=== PATIENT | female | born 1935 | race Two or more races ===

== ENCOUNTER 2019-01-23 16:09 | Emergency (ER) | payer MEDICARE, OTHER ==
[~2019-01-23] VITALS: Ht 157.5 cm; Wt 44.0 kg
--- NOTE | 2019-01-23 16:19 | Emergency Room Report ---
History of Present Illness General Chief Complaint: Upper Respiratory Illness Source: Patient, EMS Present Illness HPI Patient is an 83-year-old female sent in by skilled nursing for possible pneumonia. Patient was noted to have increased cough and congestion.Patient was noted to have no fever. She had some prior history of hypertension. She reports having increased nonproductive cough she denies any new leg swelling. She reports having some increased nasal congestion. Allergies: Coded Allergies: No Known Allergies (Unverified , 01/23/19) Patient History Past Medical History: see triage record Reviewed Nursing Documentation: PMH: Agreed; PSxH: Agreed Nursing Documentation-PMH Past Medical History: No History, Except For Hx Hypertension: Yes Review of Systems All Other Systems: negative except mentioned in HPI Physical Exam Vital Signs Date Time Temp Pulse Resp B/P (MAP) Pulse Ox O2 Delivery O2 Flow Rate FiO2 01/23/19 16:13 98.8 57 16 147/68 96 Room Air Sp02 EP Interpretation: reviewed, normal General Appearance: thin, Chronically Ill Head: atraumatic ENT: normal ENT inspection, hearing grossly normal, normal voice Neck: normal inspection, full range of motion, supple, no bony tend Respiratory: normal inspection, lungs clear, normal breath sounds, no respiratory distress, no retraction, no wheezing Cardiovascular #1: regular rate, rhythm, no edema Gastrointestinal: normal inspection, normal bowel sounds, non tender, soft, no guarding, no hernia Genitourinary: no CVA tenderness Musculoskeletal: normal inspection, back normal, normal range of motion Neurologic: normal inspection, alert, oriented x3, responsive, coke loader III-XII nml as tested, speech normal Psychiatric: normal inspection, judgement/insight normal, mood/affect normal Skin: normal inspection, normal color, no rash Medical Decision Making Diagnostic Impression: Primary Impression: Upper respiratory infection Additional Impression: CHF (congestive heart failure) ER Course Patient presented for cough and difficulty breathing. Differential diagnosis include was not limited to influenza, pneumonitis, congestive heart failure, myocardial infarction among others. Because of complexity of patient's case laboratory testing and imaging studies were ordered. Chest x-ray 1 view interpreted by me showed mild cardiomegaly without evident infiltrate patient was noted to have a normal oxygen saturation. Dr. Perez was contacted and after discussion with him patient will be discharged back to her facility for monitoring. Patient was given oral Lasix in the emergency department. Labs Test 01/23/19 16:32 01/23/19 16:54 White Blood Count 4.0 K/UL (4.8-10.8) Red Blood Count 3.81 M/UL (4.20-5.40) Hemoglobin 11.6 G/DL (12.0-16.0) Hematocrit 35.1 % (37.0-47.0) Mean Corpuscular Volume 92 FL (80-99) Mean Corpuscular Hemoglobin 30.5 PG (27.0-31.0) Mean Corpuscular Hemoglobin Concent 33.1 G/DL (32.0-36.0) Red Cell Distribution Width 12.4 % (11.6-14.8) Platelet Count 219 K/UL (150-450) Mean Platelet Volume 7.2 FL (6.5-10.1) Neutrophils (%) (Auto) 41.6 % (45.0-75.0) Lymphocytes (%) (Auto) 39.2 % (20.0-45.0) Monocytes (%) (Auto) 17.4 % (1.0-10.0) Eosinophils (%) (Auto) 0.6 % (0.0-3.0) Basophils (%) (Auto) 1.3 % (0.0-2.0) Sodium Level 137 MMOL/L (136-145) Potassium Level 4.1 MMOL/L (3.5-5.1) Chloride Level 101 MMOL/L (98-107) Carbon Dioxide Level 30 MMOL/L (21-32) Anion Gap 6 mmol/L (5-15) Blood Urea Nitrogen 21 mg/dL (7-18) Creatinine 0.8 MG/DL (0.55-1.30) Estimat Glomerular Filtration Rate mL/min (>60) Glucose Level 96 MG/DL (74-106) Calcium Level 8.9 MG/DL (8.5-10.1) Total Bilirubin 0.3 MG/DL (0.2-1.0) Aspartate Amino Transf (AST/SGOT) 27 U/L (15-37) Alanine Aminotransferase (ALT/SGPT) 17 U/L (12-78) Alkaline Phosphatase 112 U/L (46-116) Pro-B-Type Natriuretic Peptide 386 pg/mL (0-125) Total Protein 7.4 G/DL (6.4-8.2) Albumin 3.3 G/DL (3.4-5.0) Globulin 4.1 g/dL Albumin/Globulin Ratio 0.8 (1.0-2.7) Urine Color Pale yellow Urine Appearance Clear Urine pH 6.5 (4.5-8.0) Urine Specific [place] 1.010 (1.005-1.035) Urine Protein Negative (NEGATIVE) Urine Glucose (UA) Negative (NEGATIVE) Urine Ketones Negative (NEGATIVE) Urine Blood 4+ (NEGATIVE) Urine Nitrite Negative (NEGATIVE) Urine Bilirubin Negative (NEGATIVE) Urine Urobilinogen Normal MG/DL (0.0-1.0) Urine Leukocyte Esterase Negative (NEGATIVE) Urine RBC 2-4 /HPF (0 - 2) Urine WBC 0-2 /HPF (0 - 2) Urine Squamous Epithelial Cells Occasional /LPF Urine Bacteria Few /HPF (NONE) Last Vital Signs Date Time Temp Pulse Resp B/P (MAP) Pulse Ox O2 Delivery O2 Flow Rate FiO2 01/23/19 16:13 98.8 57 16 147/68 96 Room Air Status: improved Disposition: HOME, SELF-CARE Condition: Stable Hiro Yu MD Jan 23, 2019 16:19
[2019-01-23 16:55] LABS: BASOPHILS % (AUTO) 1.3 % (0.0-2.0); EOSINOPHILS % (AUTO) 0.6 % (0.0-3.0); HEMATOCRIT 35.1 % (37.0-47.0); HEMOGLOBIN 11.6 G/DL (12.0-16.0); LYMPHOCYTES % (AUTO) 39.2 % (20.0-45.0); MEAN CORPUSCULAR VOLUME 92 FL (80-99); MONOCYTES % (AUTO) 17.4 % (1.0-10.0); NEUTROPHILS % (AUTO) 41.6 % (45.0-75.0); PLATELET COUNT 219 K/UL (150-450); RED BLOOD COUNT 3.81 M/UL (4.20-5.40); RED CELL DISTRIBUTION WIDTH 12.4 % (11.6-14.8)
[2019-01-23 17:02] VITALS: BP 140/51
--- NOTE | 2019-01-23 17:05 | NUR ---
ED Nurse Note: PT. AAOX4. FRISIAN SPEAKING. PT. WAS BROUGHT IN BY AMBULANCE DUE TO PRODUCTIVE COUGH REORTED BY THE DAUGHTER. WAS RECENTLY SEEN BY PCP AND WAS TOLD TO GO TO ER FOR POSSIBLE PNEUMONIA. KE IS INTACT. ESTABLISHED 18 GAUGE IV ACCESS ON L AC. DAUGHTER AT THE BEDSIDE
[2019-01-23 17:29] LABS: ANION GAP 6 mmol/L (5-15); BLOOD UREA NITROGEN 21 mg/dL (7-18); CALCIUM 8.9 MG/DL (8.5-10.1); CARBON DIOXIDE 30 MMOL/L (21-32); CHLORIDE 101 MMOL/L (98-107); CREATININE 0.8 MG/DL (0.55-1.30); POTASSIUM 4.1 MMOL/L (3.5-5.1); SODIUM 137 MMOL/L (136-145)
[2019-01-23 17:36] LABS: APPEARANCE,URINE CLEAR; BILIRUBIN, URINE NEGATIVE (NEGATIVE); COLOR,URINE PALE YELLOW; GLUCOSE, URINE (UA) NEGATIVE (NEGATIVE); KETONES,URINE NEGATIVE (NEGATIVE); LEUKOCYTE ESTERASE ,URINE NEGATIVE (NEGATIVE); NITRITE,URINE NEGATIVE (NEGATIVE); PH,URINE 6.5 (4.5-8.0); PROTEIN,URINE NEGATIVE (NEGATIVE); UROBILINOGEN,URINE NORMAL MG/DL (0.0-1.0)
[2019-01-23 17:40] LABS: ALANINE AMINOTRANSFERASE 17 U/L (12-78); ALBUMIN 3.3 G/DL (3.4-5.0); ALBUMIN/GLOBULIN RATIO 0.8 (1.0-2.7); ALKALINE PHOSPHATASE 112 U/L (46-116); ASPARTATE AMINO TRANSFERASE 27 U/L (15-37); BILIRUBIN,TOTAL 0.3 MG/DL (0.2-1.0)
--- NOTE | 2019-01-23 18:48 | NUR ---
Spoke with PENNY at [facility]-aware of patient going back.
--- NOTE | 2019-01-23 18:51 | NUR ---
Spoke with Olena at [facility]-ETA 20:00.
--- NOTE | 2019-01-23 19:05 | NUR ---
ED Nurse Note: KENDRA FRANCIS-RECEIVED THE REPORT
--- NOTE | 2019-01-23 20:07 | NUR ---
ED Nurse Note: Report rendered to BLS, patient in stable condition, no s/s of acute distress. Patient vital signs stable, patient accompanied by daughter at bedside, departed with all belongings.
[2019-01-23 20:09] VITALS: BP 140/51
--- NOTE | 2019-01-24 11:57 | Diagnostic Imaging Report ---
Indication: Shortness of breath Technique: One view of the chest Comparison: none Findings: Patient is rotated to the right. Lungs and right pleural space are clear. There is approximately 3 cm diameter lentiform opacity occupying the left costophrenic sulcus. The heart size is upper limits of normal Impression: Opacity within the left costophrenic sulcus. Possibly of mass should be considered. Recommend further evaluation with CT scan No definite acute process Findings discussed by phone with Dr. Manjarrez in the emergency room at the time of interpretation
[2019-01-24] MEDS ORDERED: MILK OF MA400 MG/51 ORAL (16:08)
[2019-01-24] MEDS ORDERED: DOCUSIL100 M1 ORAL (16:08)
[2019-01-24] MEDS ORDERED: ENALAPRIL MALEA10 MG ORAL (16:08)
[2019-01-24] MEDS ORDERED: CHLORTHALIDONE25 MG ORAL (16:08)
[2019-01-24] MEDS ORDERED: FAMOTIDINE20 MG ORAL (16:08)
[2019-01-24] MEDS ORDERED: LAXATIVE SUPPOS10 MG RC (16:08)
[2019-01-24] MEDS ORDERED: NORCO 5-325 TA1 EACH ORAL ×2 (16:08→17:44)
[2019-01-24] MEDS ORDERED: ACETAMINOPHEN325 M1 ORAL (16:08)
[2019-01-24] MEDS ORDERED: METOPROLOL TART25 MG ORAL (16:08)
[2019-01-24] MEDS ORDERED: METOPROLOL SUCC25 MG ORAL (17:44)
[2019-01-24] MEDS ORDERED: FLEET ENEMA133 ML RECTAL (17:44)
--- NOTE | 2019-01-26 01:28 | Cardiology Report ---
APPROVED REPORT EKG Measurement Heart [id number] TN [id number] Sinus bradycardia Otherwise normal ECG
== END 2019-01-23 20:05 ==
LOC: EDBD 16:09 → EMR 16:45
DX: J06.9 Acute upper respiratory infection, unspecified (principal); I11.0 Hypertensive heart disease with heart failure; I50.9 Heart failure, unspecified
CPT/HCPCS: 36415; 71045; 80053; 81003; 83880; 85025; 86710; 87040; 93005; 96374; 99284; J1940

== ENCOUNTER 2019-01-24 15:52 | Inpatient (IN) | payer MEDICARE, OTHER ==
[~2019-01-24] VITALS: Ht 152.4 cm; Wt 44.3 kg
[2019-01-24] MEDS ORDERED: NORCO 5-325 TA1 EACH ORAL ×2 (16:08→17:44)
[2019-01-24] MEDS ORDERED: ENALAPRIL MALEA10 MG ORAL (16:08)
[2019-01-24] MEDS ORDERED: CHLORTHALIDONE25 MG ORAL (16:08)
[2019-01-24] MEDS ORDERED: FAMOTIDINE20 MG ORAL (16:08)
[2019-01-24] MEDS ORDERED: DOCUSIL100 M1 ORAL (16:08)
[2019-01-24] MEDS ORDERED: LAXATIVE SUPPOS10 MG RC (16:08)
[2019-01-24] MEDS ORDERED: METOPROLOL TART25 MG ORAL (16:08)
[2019-01-24] MEDS ORDERED: ACETAMINOPHEN325 M1 ORAL (16:08)
[2019-01-24] MEDS ORDERED: MILK OF MA400 MG/51 ORAL (16:08)
[2019-01-24 16:15] VITALS: BP 113/62
--- NOTE | 2019-01-24 16:30 | NUR ---
ED Nurse Note: Pt brought in by ambulance BLS from [facility] due to abnormal cxr. Pt was here yesterday and was discharged w. dx pneumonia. pt reports chest pain 06/01. pt AA&ox1, belarusian speaking, calm and cooperative, skin warm and dry, resp even and unlabored on RA, -n/v/d, on bedrest at this time, VSS, will cont monitor. no resp distress, o2sat 98% on RA.
--- NOTE | 2019-01-24 17:02 | Diagnostic Imaging Report ---
Indication: Shortness of breath Technique: One view of the chest Comparison: 01/23/2019 Findings: Opacity in the left costophrenic sulcus is again demonstrated. The remainder of the lungs and pleural spaces are clear. The heart size is borderline enlarged. The aorta is tortuous. Impression: Left costophrenic sulcus opacity, previously described on previous day's exam, again demonstrated. As previously recommended, consider CT for better characterization No significant interim change
[2019-01-24 17:14] LABS: BASOPHILS % (AUTO) 1.1 % (0.0-2.0); EOSINOPHILS % (AUTO) 2.2 % (0.0-3.0); HEMATOCRIT 38.1 % (37.0-47.0); HEMOGLOBIN 12.5 G/DL (12.0-16.0); LYMPHOCYTES % (AUTO) 37.3 % (20.0-45.0); MEAN CORPUSCULAR VOLUME 92 FL (80-99); MONOCYTES % (AUTO) 14.9 % (1.0-10.0); NEUTROPHILS % (AUTO) 44.5 % (45.0-75.0); PLATELET COUNT 231 K/UL (150-450); RED BLOOD COUNT 4.12 M/UL (4.20-5.40); RED CELL DISTRIBUTION WIDTH 12.5 % (11.6-14.8)
[2019-01-24 17:18] LABS: INR 0.9 (0.9-1.1)
[2019-01-24 17:21] LABS: ANION GAP 8 mmol/L (5-15); BLOOD UREA NITROGEN 19 mg/dL (7-18); CARBON DIOXIDE 31 MMOL/L (21-32); CHLORIDE 100 MMOL/L (98-107); CREATININE 0.9 MG/DL (0.55-1.30); POTASSIUM 3.4 MMOL/L (3.5-5.1); SODIUM 139 MMOL/L (136-145)
[2019-01-24 17:32] LABS: ALANINE AMINOTRANSFERASE 18 U/L (12-78); ALBUMIN 3.4 G/DL (3.4-5.0); ALBUMIN/GLOBULIN RATIO 0.8 (1.0-2.7); ALKALINE PHOSPHATASE 130 U/L (46-116); ASPARTATE AMINO TRANSFERASE 27 U/L (15-37); BILIRUBIN,TOTAL 0.2 MG/DL (0.2-1.0); CREATINE KINASE 54 U/L (26-308)
[2019-01-24] MEDS ORDERED: FLEET ENEMA133 ML RECTAL (17:44)
[2019-01-24] MEDS ORDERED: METOPROLOL SUCC25 MG ORAL (17:44)
[2019-01-24 18:10] VITALS: BP 118/46
[2019-01-24] MEDS ORDERED: Isovue-300 100ml vial INJ PRN (18:30)
--- NOTE | 2019-01-24 18:33 | NUR ---
ED Nurse Note: Urine sent.
[2019-01-24 18:39] LABS: APPEARANCE,URINE CLEAR; BILIRUBIN, URINE NEGATIVE (NEGATIVE); COLOR,URINE PALE YELLOW; GLUCOSE, URINE (UA) NEGATIVE (NEGATIVE); KETONES,URINE NEGATIVE (NEGATIVE); LEUKOCYTE ESTERASE ,URINE 1+ (NEGATIVE); NITRITE,URINE NEGATIVE (NEGATIVE); PH,URINE 7 (4.5-8.0); PROTEIN,URINE 1+ (NEGATIVE); UROBILINOGEN,URINE NORMAL MG/DL (0.0-1.0)
--- NOTE | 2019-01-24 18:45 | NUR ---
Marcellus hernandez in EDM - 01/24/19 at 1848 by SHIRA ED Nurse Note: Pharmacist called and stated that Lovenox will take some time to mix the dose.
--- NOTE | 2019-01-24 19:39 | NUR ---
ED Nurse Note: REPORT GIVEN TO RN TALI, WILL SEND PT AT 2000
--- NOTE | 2019-01-24 19:48 | NUR ---
ED Nurse Note: VERIFIED W/ ERMD, PT OKAY TO EAT/DRINK. SANDWICH AND JUICE PROVIDED
--- NOTE | 2019-01-24 19:51 | NUR ---
CASE MANAGEMENT: REVIEW 83/F BIBA FROM [facility] CC: ABNORMAL LABS SI: PNA T 99.7 HR 63 RR 20 BP 118/46 SAT 96% ROOM AIR WBC 4.0 K 3.4 BNP 363 CXR: LEFT COSTOPHRENIC SULCUS OPACITY IS: NS IVF BOLUS X1 PATIENT ADMITTED TO MED/SURG UNIT 01/24/2019 DCP: PATIENT IS FROM [facility]
--- NOTE | 2019-01-24 20:00 | NUR ---
ED Nurse Note: report given to LISA Christopher and endorsed care, all belongings sent w/ pt. pt transferred to [facility]. w[facility]. daughter at the bedside.
--- NOTE | 2019-01-24 20:21 | Emergency Room Report ---
History of Present Illness General Chief Complaint: Abnormal Labs Source: Patient, Family Member, Medical Record, EMS Present Illness HPI Patient was seen yesterday for an episode of paroxysms of coughing. This really began Thursday night. This is unusual as the patient doesn't complain about chest symptoms. An x-ray was performed. In the morning was reread by the radiologist who found a mass there on the left-hand side and the patient was told to return. The patient denies any symptoms at this time. No fevers, chills, chest pain, palpitations, nausea, vomiting, diarrhea, dysuria , abdominal pain, shortness of breath, depression, visual changes, headache. However the patient does have dementia and her answers are questionable This is yesterday's history: Patient is an 83-year-old female sent in by [facility] for possible pneumonia. Patient was noted to have increased cough and congestion.Patient was noted to have no fever. She had some prior history of hypertension. She reports having increased nonproductive cough she denies any new leg swelling. She reports having some increased nasal congestion. Allergies: Coded Allergies: No Known Allergies (Unverified , 01/23/19) Patient History Past Medical History: see triage record Social History: Denies: smoking Social History Narrative Born in the [facility] Reviewed Nursing Documentation: PMH: Agreed; PSxH: Agreed Nursing Documentation-PMH Hx Cardiac Problems: Yes - chf Hx Hypertension: Yes Review of Systems All Other Systems: negative except mentioned in HPI - Somewhat questionable answers Physical Exam Vital Signs Date Time Temp Pulse Resp B/P (MAP) Pulse Ox O2 Delivery O2 Flow Rate FiO2 01/24/19 15:53 99.7 73 20 119/62 96 Room Air Sp02 EP Interpretation: reviewed, normal General Appearance: no apparent distress, thin, other - Frail Head: normocephalic Eyes: bilateral eye normal inspection, bilateral eye PERRL ENT: moist mucus membranes Neck: supple Respiratory: chest non-tender, lungs clear, normal breath sounds Cardiovascular #1: regular rate, rhythm Cardiovascular #2: 2+ radial (R) Gastrointestinal: normal inspection, normal bowel sounds, non tender, no mass, non-distended Genitourinary: no CVA tenderness Musculoskeletal: back normal, normal range of motion, no calf tenderness, Karley 's Sign negative Neurologic: alert, oriented - X2 Psychiatric: mood/affect normal, other - Poor recent memory Skin: normal inspection, warm/dry Medical Decision Making Diagnostic Impression: Primary Impression: Lung mass Additional Impression: Dehydration ER Course Patient presents with abnormal x-ray. Differential includes pneumonia, mass amongst others. Repeat laboratory testing is undertaken as well as repeat chest x-ray. Patient is placed on compliance monitor. EKG without injury or abnormality. Chest x-ray with left mass versus infiltrate. Labs unremarkable except for mild elevation in BUN and slightly low potassium. White count is 4000. CT of the chest is obtained with contrast. This reveals a 3.5 cm mass with pleural nodules. At the request of the daughter and her physician the patient is admitted to medical floor for consideration of lung biopsy. Laboratory Tests Test 01/24/19 16:25 01/24/19 18:26 White Blood Count 4.0 K/UL (4.8-10.8) L Red Blood Count 4.12 M/UL (4.20-5.40) L Hemoglobin 12.5 G/DL (12.0-16.0) Hematocrit 38.1 % (37.0-47.0) Mean Corpuscular Volume 92 FL (80-99) Mean Corpuscular Hemoglobin 30.4 PG (27.0-31.0) Mean Corpuscular Hemoglobin Concent 32.9 G/DL (32.0-36.0) Red Cell Distribution Width 12.5 % (11.6-14.8) Platelet Count 231 K/UL (150-450) Mean Platelet Volume 7.6 FL (6.5-10.1) Neutrophils (%) (Auto) 44.5 % (45.0-75.0) L Lymphocytes (%) (Auto) 37.3 % (20.0-45.0) Monocytes (%) (Auto) 14.9 % (1.0-10.0) H Eosinophils (%) (Auto) 2.2 % (0.0-3.0) Basophils (%) (Auto) 1.1 % (0.0-2.0) Prothrombin Time 10.0 SEC (9.30-11.50) Prothrombin Time INR 0.9 (0.9-1.1) PTT 27 SEC (23-33) Sodium Level 139 MMOL/L (136-145) Potassium Level 3.4 MMOL/L (3.5-5.1) L Chloride Level 100 MMOL/L (98-107) Carbon Dioxide Level 31 MMOL/L (21-32) Anion Gap 8 mmol/L (5-15) Blood Urea Nitrogen 19 mg/dL (7-18) H Creatinine 0.9 MG/DL (0.55-1.30) Estimate Glomerular Filtration Rate mL/min (>60) Glucose Level 110 MG/DL (74-106) H Lactic Acid Level 1.90 mmol/L (0.4-2.0) Calcium Level 9.0 MG/DL (8.5-10.1) Total Bilirubin 0.2 MG/DL (0.2-1.0) Aspartate Amino Transferase (AST) 27 U/L (15-37) Alanine Aminotransferase (ALT) 18 U/L (12-78) Alkaline Phosphatase 130 U/L (46-116) H Total Creatine Kinase 54 U/L (26-308) Troponin I 0.000 ng/mL (0.000-0.056) Pro-B-Type Natriuretic Peptide 363 pg/mL (0-125) H Total Protein 7.8 G/DL (6.4-8.2) Albumin 3.4 G/DL (3.4-5.0) Globulin 4.4 g/dL Albumin/Globulin Ratio 0.8 (1.0-2.7) L Urine Color Pale yellow Urine Appearance Clear Urine pH 7 (4.5-8.0) Urine Specific [place] 1.010 (1.005-1.035) Urine Protein 1+ (NEGATIVE) H Urine Glucose (UA) Negative (NEGATIVE) Urine Ketones Negative (NEGATIVE) Urine Blood 3+ (NEGATIVE) H Urine Nitrite Negative (NEGATIVE) Urine Bilirubin Negative (NEGATIVE) Urine Urobilinogen Normal MG/DL (0.0-1.0) Urine Leukocyte Esterase 1+ (NEGATIVE) H Urine RBC 5-10 /HPF (0 - 2) H Urine WBC 2-4 /HPF (0 - 2) Urine Squamous Epithelial Cells Few /LPF (NONE/OCC) Urine Bacteria Few /HPF (NONE) Microbiology Date/Time Source Procedure Growth Status 01/24/19 16:25 Nasal Nares Influenza Types A,B Antigen ([facility]) - Final Complete EKG Diagnostic Results Rate: normal Rhythm: NSR ST Segments: no acute changes Rhythm Strip Diag. Results EP Interpretation: yes Rhythm: NSR, no PVC's, no ectopy Chest X-Ray Diagnostic Results Chest X-Ray Diagnostic Results : Chest X-Ray Ordered: Yes # of Views/Limited/Complete: 1 View Indication: Other EP Interpretation: Yes Interpretation: no effusion, no pneumothorax, other - Left lung mass Impression: Other Electronically Signed by: Electronically signed by Kelvin Graham MD CT/MRI/US Diagnostic Results CT/MRI/US Diagnostic Results : Imaging Test Ordered: Chest Impression 3.5 cm lung mass. Pleural nodules. Biopsy recommended. Last Vital Signs Date Time Temp Pulse Resp B/P (MAP) Pulse Ox O2 Delivery O2 Flow Rate FiO2 01/24/19 23:26 Room Air 01/24/19 20:44 98.8 68 19 120/59 (79) 99 Status: improved Disposition: ADMITTED INPATIENT Condition: Serious Referrals: Lawrence Perez MD (PCP) Kelvin Graham MD Jan 24, 2019 20:21
[2019-01-24 20:44] VITALS: BP 120/59
--- NOTE | 2019-01-24 20:44 | NUR ---
NURSE NOTES: Patient received from Florencia Brumfield FROM ed Patient coming from [facility] Moroccan speaking due to abnormal CXR . Patient vss, afebrile . Patient denies any pain at this time . no sob / no n/v noted call lihnt within reach . bed in low position at all times . will continue to monitor. Addendum: 01/25/19 at 0248 by TALI LÓPEZ LVN Patient received from Luciana Mares R.N From ED. RAC Manpreet#20 H/L Patent and intact. patient family at bedside.Personal belongings signed and with patient . Notified patient location [address] 2 . call light within reach . bed in low position at all times . will continue to monitor Addendum: 01/25/19 at 0551 by TALI LÓPEZ LVN Patient potassium 3.4 DR. Perez Notified and aware .
[2019-01-24] MEDS ORDERED: Fleet's Enema 133ml RECTAL PRN (23:00)
[2019-01-24] MEDS ORDERED: Norco 5mg/325mg tab ORAL PRN ×2 (23:00)
[2019-01-24] MEDS ORDERED: Milk of Magnesia 30ml Ud ORAL PRN (23:00)
[2019-01-25] VITALS (9 sets, daily range): BP systolic 102–157; BP diastolic 39–73
--- NOTE | 2019-01-25 07:15 | NUR ---
HAND-OFF: Report given to Oscar BrumfieldPatient in stable condition
[2019-01-25 07:52] LABS: HEMATOCRIT 35.1 % (37.0-47.0); HEMOGLOBIN 11.5 G/DL (12.0-16.0); MEAN CORPUSCULAR VOLUME 92 FL (80-99); PLATELET COUNT 219 K/UL (150-450); RED BLOOD COUNT 3.82 M/UL (4.20-5.40); RED CELL DISTRIBUTION WIDTH 12.6 % (11.6-14.8)
[2019-01-25 07:59] LABS: WHITE BLOOD COUNT 2.1 K/UL (4.8-10.8)
--- NOTE | 2019-01-25 08:00 | NUR ---
NURSE NOTES: Received report from Candi GARDNER, pt a/a/o x4 with no signs of distress or other issues at this time. pt is able to ambulate around the room with steady gait. pt is NPO for schedule chest CT scan. then will resume regular diet. call light within reach, bed in lowest position, side rales up x2. pt's daughter at bedside. I will f/u as needed.
[2019-01-25 08:21] LABS: ALANINE AMINOTRANSFERASE 16 U/L (12-78); ALBUMIN/GLOBULIN RATIO 0.8 (1.0-2.7); ALKALINE PHOSPHATASE 104 U/L (46-116); ANION GAP 9 mmol/L (5-15); ASPARTATE AMINO TRANSFERASE 26 U/L (15-37); BILIRUBIN,TOTAL 0.2 MG/DL (0.2-1.0); BLOOD UREA NITROGEN 17 mg/dL (7-18); CALCIUM 8.6 MG/DL (8.5-10.1); CARBON DIOXIDE 28 MMOL/L (21-32); CHLORIDE 103 MMOL/L (98-107); CHOLESTEROL 151 MG/DL (< 200); CREATININE 0.7 MG/DL (0.55-1.30); HDL CHOLESTEROL 52 MG/DL (40-60); POTASSIUM 3.4 MMOL/L (3.5-5.1); SODIUM 140 MMOL/L (136-145); TRIGLYCERIDES 90 MG/DL (30-150)
[2019-01-25] MEDS: Metoprolol Succinate XL 25mg tab ORAL SCH (09:29)
[2019-01-25] MEDS: Enoxaparin 40mg Inj SUBQ SCH (09:30)
[2019-01-25] MEDS: Docusate 100mg cap ORAL SCH ×2 (09:31→18:13)
--- NOTE | 2019-01-25 10:25 | Diagnostic Imaging Report ---
Clinical Indication: Chest pain, abnormal chest radiograph Technique: IV administration nonionic contrast. Spiral acquisition obtained through the chest. Multiplanar reconstructions generated. Total dose length product 576.68 mGycm. CTDIvol(s) 11.9 mGy. Dose reduction achieved using automated exposure control Comparison: Reference made to chest radiograph of earlier the same day Findings: There is some image degradation due to motion artifact. In the left lateral costophrenic sulcus, corresponding to the abnormality seen on chest radiograph, there is a pleural-based mass which measures 3.7 cm AP by 1.8 cm transverse by 3 cm craniocaudad. This demonstrates nonspecific soft tissue attenuation. The adjacent ribs are intact A 7 mm nodule is seen within the lingula, image 35 of series 8. A 3 mm lingular nodule is also demonstrated, image 41 of series 8 Opacity in the inferior right middle lobe is irregular, probably represents an area of scarring. Similar opacity is seen in the anterior inferior left lower lobe. There is mild pulmonary venous prominence. There are posterior dependent atelectatic changes. No infiltrates or effusions. The heart size is upper limits of normal. No mediastinal or hilar mass or adenopathy. The ascending thoracic aorta is mildly ectatic, measuring 3.7 cm in diameter. No mediastinal or hilar mass or adenopathy. The included portion of the thyroid is unremarkable. No axillary or chest wall mass or adenopathy. The bones are unremarkable except for degenerative spondylosis changes. The included upper abdominal viscera are unremarkable. Impression: 3.7 x 1.8 x 3 cm mass in the left costophrenic sulcus, likely pleural-based. This is concerning for neoplasm. 7 mm and 3 mm lingular nodules. Further workup depends on evaluation of the above, but short interval follow-up CT should be considered Mild interstitial vascular prominence, could indicate mild interstitial edema This agrees with the preliminary interpretation provided overnight by [facility]. The CT scanner at [facility] is accredited by the [employer] and the scans are performed using protocols designed to limit radiation exposure to as low as reasonably achievable to attain images of sufficient resolution adequate for diagnostic evaluation.
--- NOTE | 2019-01-25 11:06 | NUR ---
NURSE NOTES: CT of Chest completed this morning. Meal provided after procedure. Patient Nicaraguan Speaking, but family members at bedside bilingual.
[2019-01-25] MEDS ORDERED: Lidocaine 1% Plain 30 ml INJ PRN ×2 (12:15→13:30)
--- NOTE | 2019-01-25 13:26 | Cardiology Report ---
APPROVED REPORT EKG Measurement Heart [id number] Normal sinus rhythm Normal ECG
--- NOTE | 2019-01-25 13:49 | Pre-Procedure Note/Attestation ---
Pre-Procedure Note/Attestation Complete Prior to Procedure Planned Procedure: left Procedure Narrative: CT guided lung/pleura bx Indications for Procedure Pre-Operative Diagnosis: Mass Attestation I attest that I discussed the nature of the procedure; its benefits; risks and complications; and alternatives (and the risks and benefits of such alternatives ), prior to the procedure, with the patient (or the patient's legal senior patient account representative). I attest that, if there was a reasonable possibility of needing a blood transfusion, the patient (or the patient's legal senior patient account representative) was given the [facility] standardized written summary, pursuant to the Butch Jones Blood Safety Act ([place] Health and Safety Code # 1645, as amended). I attest that I re-evaluated the patient just prior to the surgery and that there has been no change in the patient's H&P, except as documented below: Yahir Durand MD Jan 25, 2019 13:49
--- NOTE | 2019-01-25 14:04 | History & Physical ---
History and Physical History & Physicial HP completed and Dictated on 01/25/19 on 0204 PM Lawrence Perez MD Jan 25, 2019 14:04
--- NOTE | 2019-01-25 14:06 | General Progress Note ---
Assessment/Plan Assessment/Plan Full Dictation in progress Plan: Proceed with CT guided lung Bx Oncology Pulmonary Are consulted Subjective Allergies: Coded Allergies: No Known Allergies (Unverified , 01/23/19) Objective Last 24 Hour Vital Signs Date Time Temp Pulse Resp B/P (MAP) Pulse Ox O2 Delivery O2 Flow Rate FiO2 01/25/19 14:00 59 18 156/64 (94) 100 01/25/19 13:50 62 18 01/25/19 09:31 124/64 01/25/19 09:29 61 124/64 01/25/19 08:00 98.7 61 18 124/64 (84) 98 01/25/19 04:00 98.6 69 17 122/66 (84) 99 01/25/19 00:00 98.6 64 18 116/56 (76) 98 01/24/19 23:26 Room Air 01/24/19 20:44 98.8 68 19 120/59 (79) 99 01/24/19 20:00 97.6 67 18 134/59 98 Room Air 01/24/19 18:10 98.7 63 16 118/46 98 Room Air 01/24/19 16:30 78 16 Room Air 01/24/19 16:15 99.7 70 18 113/62 96 Room Air 01/24/19 15:53 99.7 73 20 119/62 96 Room Air Intake and Output 01/24/19 01/25/19 18:59 06:59 Intake Total 10 ml 320 ml Balance 10 ml 320 ml Intake Oral 10 ml 320 ml # Voids 3 Laboratory Tests 01/24/19 16:25: White Blood Count 4.0L, Red Blood Count 4.12L, Hemoglobin 12.5, Hematocrit 38.1 , Mean Corpuscular Volume 92, Mean Corpuscular Hemoglobin 30.4, Mean Corpuscular Hemoglobin Concent 32.9, Red Cell Distribution Width 12.5, Platelet Count 231, Mean Platelet Volume 7.6, Neutrophils (%) (Auto) 44.5L, Lymphocytes ( %) (Auto) 37.3, Monocytes (%) (Auto) 14.9H, Eosinophils (%) (Auto) 2.2, Basophils (%) (Auto) 1.1, Prothrombin Time 10.0, Prothromb Time International Ratio 0.9, Activated Partial Thromboplast Time 27, Sodium Level 139, Potassium Level 3.4L, Chloride Level 100, Carbon Dioxide Level 31, Anion Gap 8, Blood Urea Nitrogen 19H, Creatinine 0.9, Estimat Glomerular Filtration Rate , Glucose Level 110H, Lactic Acid Level 1.90, Calcium Level 9.0, Total Bilirubin 0.2, Aspartate Amino Transf (AST/SGOT) 27, Alanine Aminotransferase (ALT/SGPT) 18, Alkaline Phosphatase 130H, Total Creatine Kinase 54, Troponin I 0.000, Pro-B- Type Natriuretic Peptide 363H, Total Protein 7.8, Albumin 3.4, Globulin 4.4, Albumin/Globulin Ratio 0.8L 01/24/19 18:26: Urine Color Pale yellow, Urine Appearance Clear, Urine pH 7, Urine Specific [place] 1.010, Urine Protein 1+H, Urine Glucose (UA) Negative, Urine Ketones Negative, Urine Blood 3+H, Urine Nitrite Negative, Urine Bilirubin Negative, Urine Urobilinogen Normal, Urine Leukocyte Esterase 1+H, Urine RBC 5-10H, Urine WBC 2-4, Urine Squamous Epithelial Cells Few, Urine Bacteria Few 01/25/19 06:20: White Blood Count 2.1*L, Red Blood Count 3.82L, Hemoglobin 11.5L, Hematocrit 35.1L, Mean Corpuscular Volume 92, Mean Corpuscular Hemoglobin 30.2, Mean Corpuscular Hemoglobin Concent 32.8, Red Cell Distribution Width 12.6, Platelet Count 219, Mean Platelet Volume 7.2, Neutrophils (%) (Auto) , Lymphocytes (%) ( Auto) , Monocytes (%) (Auto) , Eosinophils (%) (Auto) , Basophils (%) (Auto) , Sodium Level 140, Potassium Level 3.4L, Chloride Level 103, Carbon Dioxide Level 28, Anion Gap 9, Blood Urea Nitrogen 17, Creatinine 0.7, Estimat Glomerular Filtration Rate , Glucose Level 88, Calcium Level 8.6, Total Bilirubin 0.2, Aspartate Amino Transf (AST/SGOT) 26, Alanine Aminotransferase ( ALT/SGPT) 16, Alkaline Phosphatase 104, Troponin I 0.007, Total Protein 6.8, Albumin 3.0L, Globulin 3.8, Albumin/Globulin Ratio 0.8L, Differential Total Cells Counted 100, Neutrophils % (Manual) 34L, Lymphocytes % (Manual) 47H, Monocytes % (Manual) 16H, Eosinophils % (Manual) 3, Basophils % (Manual) 0, Band Neutrophils 0, Platelet Estimate Adequate, Platelet Morphology Normal, Red Blood Cell Morphology Normal, Hemoglobin A1c 5.6, Triglycerides Level 90, Cholesterol Level 151, LDL Cholesterol 83, HDL Cholesterol 52, Cholesterol/HDL Ratio 2.9L Height (Feet): 5 Height (Inches): 0.00 Weight (Pounds): 110 Lawrence Perez MD Jan 25, 2019 14:06
--- NOTE | 2019-01-25 14:22 | Brief Operative Note ---
Immediate Post Operative Note Operative Note Pre-op Diagnosis: L lung mass on CT scan Procedure: CT guided L lung bx (attempted) Post-op Diagnosis: same as pre-op Surgeon: Vanessa Rush Anesthesia: local Specimen: none Complications: yes - Pt. developed small PTX before samples could be obtained; procedure aborted and will be rescheduled Fluids: none Drains: none Implant(s) used?: No Yahir Rush MD Jan 25, 2019 14:22
--- NOTE | 2019-01-25 16:05 | Diagnostic Imaging Report ---
Indication: Status post lung biopsy Technique: One view of the chest Comparison: 01/24/2019 Findings: No definite pneumothorax is demonstrated. Left costophrenic angle mass is again demonstrated. The remainder the lungs and pleural spaces are clear. Heart size is normal. The aorta is tortuous and calcified Impression: No definite pneumothorax demonstrated, despite evidence of small pneumothorax on intraprocedural imaging Left basilar lung mass again demonstrated
--- NOTE | 2019-01-25 16:15 | Consultation ---
DATE OF CONSULTATION: 01/25/2019 PULMONARY CONSULTATION CONSULTING PHYSICIAN: Hussain Solitario M.D. HISTORY OF PRESENT ILLNESS: This is an 83-year-old female, who came in to the hospital with cough. The patient was seen in the ER and found to have a lung mass on chest x-ray. The patient denies any on my evaluation. REVIEW OF SYSTEMS: Denies any headaches, hematemesis, melena, hematochezia, night sweats, or weight loss. PAST MEDICAL HISTORY: Notable only for cognitive impairment. There is a documented history of CHF. SOCIAL HISTORY: She is originally from [place]. She denies alcohol or tobacco usage. PHYSICAL EXAMINATION: GENERAL: Reveals an elderly female. VITAL SIGNS: Blood pressure is 120/70, heart rate 84, respiratory rate 18, and afebrile. HEENT: Unremarkable. LUNGS: Clear breath sounds bilaterally. HEART: Normal heart sounds. ABDOMEN: Soft. EXTREMITIES: There is no edema. LABORATORY AND DIAGNOSTIC DATA: Lab testing shows white count of 4000. Chemistries are normal except for potassium of 3.4. Coags are negative. Urinalysis negative. Imaging studies, x-ray of chest was obtained which shows left costophrenic sulcus opacity. A CT of chest has been recommended. IMPRESSION: 1. Abnormal chest x-ray. 2. Cough. 3. Cognitive impairment. DISCUSSION: The patient will need further imaging studies. A CT of chest has been ordered. I will await completion of CT of chest and make further recommendations. In the interim, continue present medications and care. We will follow carefully. Hussain Solitario M.D. DR: CLEMENTE JOB#: [id number] CC:
--- NOTE | 2019-01-25 16:53 | Consultation ---
History of Present Illness General Date patient seen: Jan 25, 2019 Time patient seen: 16:36 Chief Complaint: cough , possible pneumonia Referring physician: Govind Moore Reason for Consultation: possible left side pneumonia Present Illness HPI This is an 83-year-old female with past medical history of CHF and hypertension was seen yesterday in the emergency room at [facility] for paroxysmal episodes of coughing which started Thursday night and was unusual for the patient patient was [facility] to be evaluated for possible pneumonia she had a chest x-ray which showed left sulcus groove masslike lesion so she was called back to return to the hospital and she was admitted for further evaluation. Patient had CT scan of the chest showed 3.7 x 1.8 x 3 cm mass in the left costophrenic sulcus likely pleural-based concerning for neoplasm with 7 mm and 3 mm lingular nodule so infectious disease consultation was requested for possible antibiotic treatment. Patient underwent CT-guided biopsy of her lung mass today for further evaluation No fevers, chills, chest pain, palpitations, nausea, vomiting, diarrhea, dysuria , abdominal pain, shortness of breath, depression, visual changes, headache. However the patient has dementia and her answers are questionable Allergies: Coded Allergies: No Known Allergies (Unverified , 01/23/19) Medication History Scheduled Chlorthalidone* (Chlorthalidone*), 25 MG ORAL DAILY, (Reported) Docusate Sodium* (Docusil*), 100 MG ORAL TWICE A DAY, (Reported) Enalapril Maleate* (Enalapril Maleate*), 10 MG ORAL DAILY, (Reported) Famotidine (Famotidine), 20 MG ORAL TWICE A DAY, (Reported) Metoprolol Succinate* (Metoprolol Succinate*), 25 MG ORAL DAILY, (Reported) Scheduled PRN Acetaminophen* (Acetaminophen 325MG Tablet*), 650 MG ORAL Q4H PRN for MILD PAIN (PAIN SCALE 1-4), (Reported) Bisacodyl (Laxative Suppository), 10 MG RC for IF MOM INEFFECTIVE, (Reported) Hydrocodone Bit/Acetaminophen 5-325* ([place] 5-325*), 1 TAB ORAL Q6H PRN for MOD PAIN (PAIN SCALE 5-7), (Reported) Hydrocodone Bit/Acetaminophen 5-325* ([place] 5-325*), 2 TAB ORAL Q6H PRN for SEVERE PAIN (PAIN SCALE 8-10), (Reported) Magnesium Hydroxide* (Milk Of Magnesia*), 30 ML ORAL DAILY PRN for Constipation, (Reported) Na Phos,M-B/Na Phos,Di-Ba* (Fleet Enema*), 133 ML RECTAL DAILY PRN for IF MOM & BISACODYL INEFFECTIVE, (Reported) Discontinued Medications Metoprolol Tartrate* (Metoprolol Tartrate*), 25 MG ORAL EVERY 12 HOURS, ( Reported) Discontinued Reason: Prescription changed Patient History Limited by: age, medical condition History Provided By: Medical Record, EMS Healthcare decision maker Resuscitation status Full Code Advanced Directive on File No Past Medical/Surgical History Past Medical/Surgical History: (1) Dementia (2) CHF (congestive heart failure) (3) HTN (hypertension) Review of Systems Constitutional: Reports: no symptoms Eye: Reports: no symptoms ENT: Reports: no symptoms Respiratory: Reports: cough Cardiovascular: Reports: no symptoms Gastrointestinal: Reports: no symptoms Genitourinary: Reports: no symptoms Musculoskeletal: Reports: no symptoms Skin: Reports: no symptoms Psychiatric: Reports: no symptoms Neurological: Reports: no symptoms Endocrine: Reports: no symptoms Hematologic/Lymphatic: Reports: no symptoms Physical Exam General Appearance: WD/WN, no apparent distress, alert, lethargic Lines, tubes and drains: peripheral HEENT: normocephalic, atraumatic, anicteric, mucous membranes moist, PERRL Neck: non-tender, normal alignment, supple, normal inspection Respiratory/Chest: chest wall non-tender, normal breath sounds, no respiratory distress, no accessory muscle use Cardiovascular/Chest: normal peripheral pulses, normal rate, regular rhythm, no gallop/murmur, no JVD Abdomen: normal bowel sounds, non tender, soft, no organomegaly, no mass Genitourinary/Rectal: normal genital exam Extremities: normal range of motion, non-tender, normal inspection, no calf tenderness, normal capillary refill, non-pitting Skin Exam: normal pigmentation, warm/dry 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, alert, responsive Musculoskeletal: normal muscle bulk, no effusion Last 24 Hour Vital Signs Date Time Temp Pulse Resp B/P (MAP) Pulse Ox O2 Delivery O2 Flow Rate FiO2 01/25/19 14:10 58 18 143/66 (91) 100 35/19 14:05 59 18 142/59 (86) 100 01/25/19 14:00 59 18 156/64 (94) 100 01/25/19 13:50 62 18 01/25/19 09:31 124/64 01/25/19 09:29 61 124/64 01/25/19 08:00 98.7 61 18 124/64 (84) 98 01/25/19 04:00 98.6 69 17 122/66 (84) 99 01/25/19 00:00 98.6 64 18 116/56 (76) 98 01/24/19 23:26 Room Air 01/24/19 20:44 98.8 68 19 120/59 (79) 99 01/24/19 20:00 97.6 67 18 134/59 98 Room Air 01/24/19 18:10 98.7 63 16 118/46 98 Room Air Intake and Output 01/24/19 01/25/19 18:59 06:59 Intake Total 10 ml 320 ml Balance 10 ml 320 ml Intake Oral 10 ml 320 ml # Voids 3 Laboratory Tests Test 01/24/19 18:26 01/25/19 06:20 Urine Color Pale yellow Urine Appearance Clear Urine pH 7 (4.5-8.0) Urine Specific [place] 1.010 (1.005-1.035) Urine Protein 1+ (NEGATIVE) H Urine Glucose (UA) Negative (NEGATIVE) Urine Ketones Negative (NEGATIVE) Urine Blood 3+ (NEGATIVE) H Urine Nitrite Negative (NEGATIVE) Urine Bilirubin Negative (NEGATIVE) Urine Urobilinogen Normal MG/DL (0.0-1.0) Urine Leukocyte Esterase 1+ (NEGATIVE) H Urine RBC 5-10 /HPF (0 - 2) H Urine WBC 2-4 /HPF (0 - 2) Urine Squamous Epithelial Cells Few /LPF (NONE/OCC) Urine Bacteria Few /HPF (NONE) White Blood Count 2.1 K/UL (4.8-10.8) *L Red Blood Count 3.82 M/UL (4.20-5.40) L Hemoglobin 11.5 G/DL (12.0-16.0) L Hematocrit 35.1 % (37.0-47.0) L Mean Corpuscular Volume 92 FL (80-99) Mean Corpuscular Hemoglobin 30.2 PG (27.0-31.0) Mean Corpuscular Hemoglobin Concent 32.8 G/DL (32.0-36.0) Red Cell Distribution Width 12.6 % (11.6-14.8) Platelet Count 219 K/UL (150-450) Mean Platelet Volume 7.2 FL (6.5-10.1) Neutrophils (%) (Auto) % (45.0-75.0) Lymphocytes (%) (Auto) % (20.0-45.0) Monocytes (%) (Auto) % (1.0-10.0) Eosinophils (%) (Auto) % (0.0-3.0) Basophils (%) (Auto) % (0.0-2.0) Differential Total Cells Counted 100 Neutrophils % (Manual) 34 % (45-75) L Lymphocytes % (Manual) 47 % (20-45) H Monocytes % (Manual) 16 % (1-10) H Eosinophils % (Manual) 3 % (0-3) Basophils % (Manual) 0 % (0-2) Band Neutrophils 0 % (0-8) Platelet Estimate Adequate Platelet Morphology Normal Red Blood Cell Morphology Normal Sodium Level 140 MMOL/L (136-145) Potassium Level 3.4 MMOL/L (3.5-5.1) L Chloride Level 103 MMOL/L (98-107) Carbon Dioxide Level 28 MMOL/L (21-32) Anion Gap 9 mmol/L (5-15) Blood Urea Nitrogen 17 mg/dL (7-18) Creatinine 0.7 MG/DL (0.55-1.30) Estimat Glomerular Filtration Rate mL/min (>60) Glucose Level 88 MG/DL (74-106) Hemoglobin A1c 5.6 % (4.3-6.0) Calcium Level 8.6 MG/DL (8.5-10.1) Total Bilirubin 0.2 MG/DL (0.2-1.0) Aspartate Amino Transf (AST/SGOT) 26 U/L (15-37) Alanine Aminotransferase (ALT/SGPT) 16 U/L (12-78) Alkaline Phosphatase 104 U/L (46-116) Troponin I 0.007 ng/mL (0.000-0.056) Total Protein 6.8 G/DL (6.4-8.2) Albumin 3.0 G/DL (3.4-5.0) L Globulin 3.8 g/dL Albumin/Globulin Ratio 0.8 (1.0-2.7) L Triglycerides Level 90 MG/DL (30-150) Cholesterol Level 151 MG/DL (< 200) LDL Cholesterol 83 mg/dL (<100) HDL Cholesterol 52 MG/DL (40-60) Cholesterol/HDL Ratio 2.9 (3.3-4.4) L Microbiology Date/Time Source Procedure Growth Status 01/24/19 17:50 Rectum Received Height (Feet): 5 Height (Inches): 0.00 Weight (Pounds): 110 Medications Current Medications Medications (Trade) Dose Ordered Sig/Negro Route PRN Reason Start Time Stop Time Status Last Admin Dose Admin Acetaminophen (Tylenol) 650 mg Q4H PRN ORAL MILD PAIN (PAIN SCALE 1-4) 01/24/19 23:00 02/23/19 22:59 Acetaminophen/ Hydrocodone Bitart ([place] 5/325) 1 tab Q6H PRN ORAL MOD PAIN (PAIN SCALE 5-7) 01/24/19 23:00 01/31/19 22:59 Acetaminophen/ Hydrocodone Bitart ([place] 5/325) 2 tab Q6H PRN ORAL SEVERE PAIN (PAIN SCALE 8-10) 01/24/19 23:00 01/31/19 22:59 Bisacodyl (Dulcolax) 10 mg DAILY PRN RECTAL IF MOM INEFFECTIVE 01/24/19 23:00 02/23/19 22:59 Chlorthalidone (Chlorthalidone) 25 mg DAILY ORAL 01/25/19 09:00 02/24/19 08:59 01/25/19 09:30 Docusate Sodium (Colace) 100 mg TWICE A DAY ORAL 01/25/19 09:00 02/24/19 08:59 01/25/19 09:31 Enalapril Maleate (Vasotec) 10 mg DAILY ORAL 01/25/19 09:00 02/24/19 08:59 01/25/19 09:31 Enoxaparin Sodium (Lovenox) 40 mg DAILY SUBQ 01/25/19 09:00 02/24/19 08:59 01/25/19 09:30 Famotidine (Pepcid) 20 mg DAILY ORAL 01/25/19 09:00 02/24/19 08:59 01/25/19 09:29 Iopamidol (Isovue-300 100ml) 100 ml NOW PRN INJ Radiology Procedure 01/24/19 18:30 01/26/19 18:21 Lidocaine HCl (Xylocaine 1% 30ml) 30 ml NOW PRN INJ Radiology Procedure 01/25/19 12:15 01/27/19 12:08 Lidocaine HCl (Xylocaine 1% 30ml) 30 ml ONCE PRN INJ LINE 01/25/19 13:30 01/25/19 23:59 Magnesium Hydroxide (Mom) 30 ml DAILY PRN ORAL Constipation 01/24/19 23:00 02/23/19 22:59 Metoprolol Succinate (Toprol XL) 25 mg DAILY ORAL 01/25/19 09:00 02/24/19 08:59 01/25/19 09:29 Sodium Phosphate (Fleet's Sodium Phosl Enema) 133 ml DAILY PRN RECTAL IF MOM & BISACODYL INEFFECTIVE 01/24/19 23:00 02/23/19 22:59 Assessment/Plan Problem List: (1) Pneumonia Assessment & Plan: keep off antibiotics for now since no fever or leukocytosis , no phlegm , and CT showed lung mass ICD Codes: J18.9 - Pneumonia, unspecified organism SNOMED: 569934526 (2) Neutropenia Assessment & Plan: rule out bone marrow supression , or mets . oncology is following , will consider antibiotics if spikes fever ICD Codes: D70.9 - Neutropenia, unspecified SNOMED: 868902877 (3) Lung mass Assessment & Plan: S/P CT guided biopsy by IR, await pathology , oncology is following ICD Codes: R91.8 - Other nonspecific abnormal finding of lung field SNOMED: 640358668 (4) Dementia Assessment & Plan: continue supportive care ICD Codes: F03.90 - Unspecified dementia without behavioral disturbance SNOMED: 82601648 (5) CHF (congestive heart failure) Assessment & Plan: continue cardiac meds as per primary ICD Codes: I50.9 - Heart failure, unspecified SNOMED: 98097807 (6) Dehydration Assessment & Plan: continue hydration as needed , encourage oral intake ICD Codes: E86.0 - Dehydration SNOMED: 52635745 Status: stable Melecio Rodriguez M.D. Jan 25, 2019 16:53
--- NOTE | 2019-01-25 17:05 | Diagnostic Imaging Report ---
Indication: Follow-up of pneumothorax status post lung biopsy Technique: One view of the chest Comparison: 2 1/2 hours earlier Findings: There is a tiny left apical pneumothorax, top of the lung apex projecting 1 cm below the apex of the left pleural space. In retrospect, pneumothorax is visible on the previous exam, with the top of the lung projecting 2.3 cm above the apex of the pleural space, and the top of the lung paralleling the bottom of the third rib, currently paralleling the bottom of the second rib. The lungs are otherwise clear. Heart size is normal. Left costophrenic angle mass is poorly visualized currently Impression: Tiny left apical pneumothorax, in retrospect evident on the previous exam, but currently significantly smaller Follow-up radiograph will be obtained in the morning
--- NOTE | 2019-01-25 18:00 | History and Physical Report ---
DATE OF ADMISSION: 01/24/2019 SOURCE OF INFORMATION: Patient and EMR. HISTORY OF PRESENT ILLNESS: The patient is a pleasant 83-year-old female with history of hypertension, currently residing at the long term facility. The patient has been reported with worsening of the cough and shortness of breath, had been admitted via the emergency room, found to have mass in the lung. Initial vital signs remained stable. The patient denies any fever or chills. ALLERGIES: NKDA. SOCIAL HISTORY: The patient denies history of smoking. The patient's family and the patient's daughter are living in [place]. No reported history of illicit drug abuse. PAST MEDICAL HISTORY: Hypertension, dyslipidemia, congestive heart failure, hypertension. CURRENT HOSPITAL MEDICATIONS: Including but not limited to magnesium, metoprolol, chlorthalidone, [place] as needed. PHYSICAL EXAMINATION: VITAL SIGNS: Blood pressure 120/80, temperature 98.2, pulse oximetry 98% on room air, respiratory rate 18, temperature 98.2. HEENT: Atraumatic and normocephalic. CHEST: Clear to auscultation HEART: S1 and S2. Regular rate and rhythm. ABDOMEN: Soft. No organomegaly. MUSCULOSKELETAL: No gross sensory deficits. NEUROLOGY: The patient is awake, alert, and oriented x3. LABORATORY DATA: Labs dated for January 24 shows WBC 4, hemoglobin of 12.5, and platelets of 231. Sodium 139, potassium 3.4, BUN 19, creatinine of 0.9. Troponin times x2 negative. IMAGING: Chest x-ray dated January 24, 2019, reviewed. ASSESSMENT: 1. Left-sided solitary pulmonary mass. 2. Hypertension. 3. Congestive heart failure-stable at this time. 4. Gastrointestinal and DVT prophylaxis. PLAN OF CARE: We will proceed with CT scan of the chest. Pulmonary, Dr. Solitario notified. Continue with shelter medications. Lawrence Perez M.D. DR: Sha JOB#: [id number] CC:
--- NOTE | 2019-01-25 20:00 | NUR ---
HAND-OFF: Report given to Flor GONZALEZ, pt in stable condition. RN endorsed to incoming RN that pt needs to be NPO after midnight for a repeat CT guided Biopsy tomorrow morning. she is also aware that pt needs to be placed on the left side.
--- NOTE | 2019-01-25 20:34 | NUR ---
NURSE NOTES: Patient is in bed, aox4, Vss, mild shortness of breath noted. 02 sat 98% room air. No pain noted. Needs attended to, bed low, call light within reach. Addendum: 01/25/19 at 2046 by SANDRA FRENCH RN *in bed on left side.
[2019-01-26] VITALS (7 sets, daily range): BP systolic 115–150; BP diastolic 46–80
--- NOTE | 2019-01-26 06:42 | Pulmonology Progress Note ---
Assessment/Plan Assessment/Plan 1. Abnormal chest x-ray. Lung mass 2. Cough. 3. Cognitive impairment. DISCUSSION: I will follow carefully. Pleural based left sided lung mass seen; s/p attempted biopsy (unsuccessful) Has small apical PTX WIll need repeat attempt at biopsy Subjective Interval Events: No symptoms new Constitutional: Reports: no symptoms HEENT: Repors: no symptoms Respiratory: Reports: no symptoms Cardiovascular: Reports: no symptoms Gastrointestinal/Abdominal: Reports: no symptoms Genitourinary: Reports: no symptoms Allergies: Coded Allergies: No Known Allergies (Unverified , 01/23/19) Objective Last 24 Hour Vital Signs Date Time Temp Pulse Resp B/P (MAP) Pulse Ox O2 Delivery O2 Flow Rate FiO2 01/26/19 04:00 98.4 59 16 130/55 (80) 97 01/26/19 00:00 98.5 55 18 132/58 (82) 97 01/25/19 21:00 Room Air 01/25/19 20:00 98.4 57 17 137/56 (83) 100 01/25/19 16:00 97.2 57 17 102/39 (60) 100 01/25/19 14:10 58 18 143/66 (91) 100 01/25/19 14:05 59 18 142/59 (86) 100 01/25/19 14:00 59 18 156/64 (94) 100 01/25/19 13:50 62 18 01/25/19 09:31 124/64 01/25/19 09:29 61 124/64 01/25/19 08:00 98.7 61 18 124/64 (84) 98 Intake and Output 01/25/19 01/26/19 19:00 07:00 Intake Total 350 ml Balance 350 ml Intake Oral 350 ml General Appearance: no acute distress HEENT: normocephalic Respiratory/Chest: chest wall non-tender, lungs clear Cardiovascular: normal peripheral pulses, normal rate Abdomen: normal bowel sounds Microbiology Date/Time Source Procedure Growth Status 01/24/19 16:25 Blood Blood Culture - Preliminary NO GROWTH AFTER 24 HOURS Resulted 01/24/19 16:25 Blood Blood Culture - Preliminary NO GROWTH AFTER 24 HOURS Resulted 01/24/19 16:25 Nasal Nares Influenza Types A,B Antigen (DALE) - Final Complete 01/24/19 17:50 Rectum Received Current Medications Medications (Trade) Dose Ordered Sig/Negro Route PRN Reason Start Time Stop Time Status Last Admin Dose Admin Acetaminophen (Tylenol) 650 mg Q4H PRN ORAL MILD PAIN (PAIN SCALE 1-4) 01/24/19 23:00 02/23/19 22:59 Acetaminophen/ Hydrocodone Bitart ([place] 5/325) 1 tab Q6H PRN ORAL MOD PAIN (PAIN SCALE 5-7) 01/24/19 23:00 01/31/19 22:59 Acetaminophen/ Hydrocodone Bitart ([place] 5/325) 2 tab Q6H PRN ORAL SEVERE PAIN (PAIN SCALE 8-10) 01/24/19 23:00 01/31/19 22:59 01/25/19 22:56 Bisacodyl (Dulcolax) 10 mg DAILY PRN RECTAL IF MOM INEFFECTIVE 01/24/19 23:00 02/23/19 22:59 Chlorthalidone (Chlorthalidone) 25 mg DAILY ORAL 01/25/19 09:00 02/24/19 08:59 01/25/19 09:30 Docusate Sodium (Colace) 100 mg TWICE A DAY ORAL 01/25/19 09:00 02/24/19 08:59 01/25/19 18:13 Enalapril Maleate (Vasotec) 10 mg DAILY ORAL 01/25/19 09:00 02/24/19 08:59 01/25/19 09:31 Enoxaparin Sodium (Lovenox) 40 mg DAILY SUBQ 01/25/19 09:00 02/24/19 08:59 01/25/19 09:30 Famotidine (Pepcid) 20 mg DAILY ORAL 01/25/19 09:00 02/24/19 08:59 01/25/19 09:29 Iopamidol (Isovue-300 100ml) 100 ml NOW PRN INJ Radiology Procedure 01/24/19 18:30 01/26/19 18:21 Lidocaine HCl (Xylocaine 1% 30ml) 30 ml NOW PRN INJ Radiology Procedure 01/25/19 12:15 01/27/19 12:08 Magnesium Hydroxide (Mom) 30 ml DAILY PRN ORAL Constipation 01/24/19 23:00 02/23/19 22:59 Metoprolol Succinate (Toprol XL) 25 mg DAILY ORAL 01/25/19 09:00 02/24/19 08:59 01/25/19 09:29 Sodium Phosphate (Fleet's Sodium Phosl Enema) 133 ml DAILY PRN RECTAL IF MOM & BISACODYL INEFFECTIVE 01/24/19 23:00 02/23/19 22:59 Hussain Solitario MD Jan 26, 2019 06:42
--- NOTE | 2019-01-26 08:00 | NUR ---
HAND-OFF: Report given to LISA Rodriguez. Patient stable.
[2019-01-26] MEDS: Enoxaparin 40mg Inj SUBQ SCH (09:00)
[2019-01-26] MEDS: Docusate 100mg cap ORAL SCH ×2 (09:38→18:50)
[2019-01-26] MEDS: Metoprolol Succinate XL 25mg tab ORAL SCH (09:39)
--- NOTE | 2019-01-26 10:06 | Diagnostic Imaging Report ---
Indication: Chest pain, postbiopsy pneumothorax Technique: One view of the chest Comparison: 01/25/2019 Findings: Small (under 10%) left apical pneumothorax is again demonstrated. This appears larger than the previous 1644 exam, but identical to the previous 1411 exam, lung apex projected at the level of the bottom of the left third rib. Left basilar lung mass again demonstrated. No new infiltrates. Impression: Unchanged small left apical pneumothorax. Further follow-up chest radiographs are recommended. Findings discussed by phone with Dr. Perez at the time of interpretation
--- NOTE | 2019-01-26 11:55 | NUR ---
CHARGE NURSE NOTES: Spoke w/ daughter, she does not want her mom to undergo any more procedures and wants to have her mom discharge instead. left a message to Dr Perez. He will make his rounds at 1230. relayed to the daughter.
--- NOTE | 2019-01-26 13:48 | General Progress Note ---
Assessment/Plan Assessment/Plan S: I am fine O: deneis chest pain or sob PHYSICAL EXAMINATION:HEENT: Atraumatic and normocephalic. CHEST: Clear to auscultation HEART: S1 and S2. Regular rate and rhythm. ABDOMEN: Soft. No organomegaly. MUSCULOSKELETAL: No gross sensory deficits. NEUROLOGY: The patient is awake, alert, and oriented x3. IMAGING: Chest x-ray dated January 24, 2019, reviewed. ASSESSMENT: 1. Left-sided solitary pulmonary mass.Post CT-guided Bx, unsuccessful first attempt 2. Hypertension. 3. Congestive heart failure-stable at this time. 4. Gastrointestinal and DVT prophylaxis. Plan: Discussed with the Dtr, agreed for second attempt for obtaining Bx. Post CT-guided Bx, unsuccessful first attempt Subjective Allergies: Coded Allergies: No Known Allergies (Unverified , 01/23/19) Objective Last 24 Hour Vital Signs Date Time Temp Pulse Resp B/P (MAP) Pulse Ox O2 Delivery O2 Flow Rate FiO2 01/26/19 09:39 59 134/55 01/26/19 09:38 134/55 01/26/19 04:00 98.4 59 16 130/55 (80) 97 01/26/19 00:00 98.5 55 18 132/58 (82) 97 01/25/19 21:00 Room Air 01/25/19 20:00 98.4 57 17 137/56 (83) 100 01/25/19 16:00 97.2 57 17 102/39 (60) 100 01/25/19 14:10 58 18 143/66 (91) 100 01/25/19 14:05 59 18 142/59 (86) 100 01/25/19 14:00 59 18 156/64 (94) 100 01/25/19 13:50 62 18 Intake and Output 01/25/19 01/26/19 19:00 07:00 Intake Total 350 ml Balance 350 ml Intake Oral 350 ml # Voids 4 Height (Feet): 5 Height (Inches): 0.00 Weight (Pounds): 97 Lawrence Perez MD Jan 26, 2019 13:48
--- NOTE | 2019-01-26 16:32 | Infectious Diseases Prog Note ---
Assessment/Plan Problems: (1) Pneumonia Assessment & Plan: keep off antibiotics for now since no fever or leukocytosis , no phlegm , and CT showed lung mass , monitor CXR (2) Neutropenia Assessment & Plan: rule out bone marrow supression , or mets . oncology is following , will consider antibiotics if spikes fever (3) Lung mass Assessment & Plan: S/P CT guided biopsy by IR, was not successful , for repeated biopsy tomorrow , radiology and oncology are following (4) Dementia Assessment & Plan: continue supportive care (5) CHF (congestive heart failure) Assessment & Plan: continue cardiac meds as per primary (6) Dehydration Assessment & Plan: continue hydration as needed , encourage oral intake (7) Pneumothorax of left lung after biopsy Assessment & Plan: continue close monitor of CXR , radiologist is following Subjective Constitutional: Reports: no symptoms HEENT: Reports: no symptoms Respiratory: Reports: no symptoms Breasts: Reports: no symptoms Cardiovascular: Reports: no symptoms Gastrointestinal/Abdominal: Reports: no symptoms Genitourinary: Reports: no symptoms Neurologic: Reports: no symptoms Psychiatric: Reports: no symptoms Skin: Reports: no symptoms Endocrine: Reports: no symptoms Hematologic: Reports: no symptoms Musculoskeletal: Reports: no symptoms Allergies: Coded Allergies: No Known Allergies (Unverified , 01/23/19) Objective Vital Signs Last 24 Hour Vital Signs Date Time Temp Pulse Resp B/P (MAP) Pulse Ox O2 Delivery O2 Flow Rate FiO2 01/26/19 09:39 59 134/55 01/26/19 09:38 134/55 01/26/19 04:00 98.4 59 16 130/55 (80) 97 01/26/19 00:00 98.5 55 18 132/58 (82) 97 01/25/19 21:00 Room Air 01/25/19 20:00 98.4 57 17 137/56 (83) 100 Height (Feet): 5 Height (Inches): 0.00 Weight (Pounds): 97 General Appearance: WD/WN, no acute distress HEENT: normocephalic, atraumatic, anicteric, mucous membranes moist, PERRL Respiratory/Chest: chest wall non-tender, lungs clear, normal breath sounds, no respiratory distress, no accessory muscle use Cardiovascular: normal peripheral pulses, normal rate, regular rhythm, no gallop/murmur, no JVD Abdomen: normal bowel sounds, soft, non tender, no organomegaly, non distended , no mass, no scars Genitourinary: normal external genitalia Extremities: no cyanosis, no clubbing Skin: no rash, no lesions, no ulcers 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 Complete 01/24/19 16:25 Nasal Nares Influenza Types A,B Antigen (DALE) - Final Complete 01/24/19 17:50 Rectum VRE Culture - Final NO VANCOMYCIN RESISTANT ENTEROCOCCUS ... Complete Current Medications Medications (Trade) Dose Ordered Sig/Negro Route PRN Reason Start Time Stop Time Status Last Admin Dose Admin Acetaminophen (Tylenol) 650 mg Q4H PRN ORAL MILD PAIN (PAIN SCALE 1-4) 01/24/19 23:00 02/23/19 22:59 Acetaminophen/ Hydrocodone Bitart ([place] 5/325) 1 tab Q6H PRN ORAL MOD PAIN (PAIN SCALE 5-7) 01/24/19 23:00 01/31/19 22:59 Acetaminophen/ Hydrocodone Bitart ([place] 5/325) 2 tab Q6H PRN ORAL SEVERE PAIN (PAIN SCALE 8-10) 01/24/19 23:00 01/31/19 22:59 01/25/19 22:56 Bisacodyl (Dulcolax) 10 mg DAILY PRN RECTAL IF MOM INEFFECTIVE 01/24/19 23:00 02/23/19 22:59 Chlorthalidone (Chlorthalidone) 25 mg DAILY ORAL 01/25/19 09:00 02/24/19 08:59 01/26/19 09:38 Docusate Sodium (Colace) 100 mg TWICE A DAY ORAL 01/25/19 09:00 02/24/19 08:59 01/26/19 09:38 Enalapril Maleate (Vasotec) 10 mg DAILY ORAL 01/25/19 09:00 02/24/19 08:59 01/26/19 09:38 Enoxaparin Sodium (Lovenox) 40 mg DAILY SUBQ 01/25/19 09:00 02/24/19 08:59 01/25/19 09:30 Famotidine (Pepcid) 20 mg DAILY ORAL 01/25/19 09:00 02/24/19 08:59 01/26/19 09:38 Iopamidol (Isovue-300 100ml) 100 ml NOW PRN INJ Radiology Procedure 01/24/19 18:30 01/26/19 18:21 Lidocaine HCl (Xylocaine 1% 30ml) 30 ml NOW PRN INJ Radiology Procedure 01/25/19 12:15 01/27/19 12:08 Magnesium Hydroxide (Mom) 30 ml DAILY PRN ORAL Constipation 01/24/19 23:00 02/23/19 22:59 Metoprolol Succinate (Toprol XL) 25 mg DAILY ORAL 01/25/19 09:00 02/24/19 08:59 01/26/19 09:39 Sodium Phosphate (Fleet's Sodium Phosl Enema) 133 ml DAILY PRN RECTAL IF MOM & BISACODYL INEFFECTIVE 01/24/19 23:00 02/23/19 22:59 Melecio Rodriguez M.D. Jan 26, 2019 16:32
--- NOTE | 2019-01-26 16:42 | Consultation ---
History of Present Illness General Chief Complaint: Abnormal Labs Referring physician: Dr Perez [facility] Reason for Consultation: possible left side pneumonia Present Illness Allergies: Coded Allergies: No Known Allergies (Unverified , 01/23/19) Medication History Scheduled Chlorthalidone* (Chlorthalidone*), 25 MG ORAL DAILY, (Reported) Docusate Sodium* (Docusil*), 100 MG ORAL TWICE A DAY, (Reported) Enalapril Maleate* (Enalapril Maleate*), 10 MG ORAL DAILY, (Reported) Famotidine (Famotidine), 20 MG ORAL TWICE A DAY, (Reported) Metoprolol Succinate* (Metoprolol Succinate*), 25 MG ORAL DAILY, (Reported) Scheduled PRN Acetaminophen* (Acetaminophen 325MG Tablet*), 650 MG ORAL Q4H PRN for MILD PAIN (PAIN SCALE 1-4), (Reported) Bisacodyl (Laxative Suppository), 10 MG RC for IF MOM INEFFECTIVE, (Reported) Hydrocodone Bit/Acetaminophen 5-325* ([place] 5-325*), 1 TAB ORAL Q6H PRN for MOD PAIN (PAIN SCALE 5-7), (Reported) Hydrocodone Bit/Acetaminophen 5-325* ([place] 5-325*), 2 TAB ORAL Q6H PRN for SEVERE PAIN (PAIN SCALE 8-10), (Reported) Magnesium Hydroxide* (Milk Of Magnesia*), 30 ML ORAL DAILY PRN for Constipation, (Reported) Na Phos,M-B/Na Phos,Di-Ba* (Fleet Enema*), 133 ML RECTAL DAILY PRN for IF MOM & BISACODYL INEFFECTIVE, (Reported) Discontinued Medications Metoprolol Tartrate* (Metoprolol Tartrate*), 25 MG ORAL EVERY 12 HOURS, ( Reported) Discontinued Reason: Prescription changed Patient History Healthcare decision maker Resuscitation status Full Code Advanced Directive on File No Physical Exam Last 24 Hour Vital Signs Date Time Temp Pulse Resp B/P (MAP) Pulse Ox O2 Delivery O2 Flow Rate FiO2 01/26/19 12:00 98.3 65 18 150/63 (92) 99 01/26/19 09:39 59 134/55 01/26/19 09:38 134/55 01/26/19 09:00 Room Air 01/26/19 08:00 98.5 59 16 134/55 (81) 99 01/26/19 04:00 98.4 59 16 130/55 (80) 97 01/26/19 00:00 98.5 55 18 132/58 (82) 97 01/25/19 21:00 Room Air 01/25/19 20:00 98.4 57 17 137/56 (83) 100 Intake and Output 01/25/19 01/26/19 18:59 06:59 Intake Total 350 ml Balance 350 ml Intake Oral 350 ml # Voids 4 Height (Feet): 5 Height (Inches): 0.00 Weight (Pounds): 97 Medications Current Medications Medications (Trade) Dose Ordered Sig/Negro Route PRN Reason Start Time Stop Time Status Last Admin Dose Admin Acetaminophen (Tylenol) 650 mg Q4H PRN ORAL MILD PAIN (PAIN SCALE 1-4) 01/24/19 23:00 02/23/19 22:59 Acetaminophen/ Hydrocodone Bitart ([place] 5/325) 1 tab Q6H PRN ORAL MOD PAIN (PAIN SCALE 5-7) 01/24/19 23:00 01/31/19 22:59 Acetaminophen/ Hydrocodone Bitart ([place] 5/325) 2 tab Q6H PRN ORAL SEVERE PAIN (PAIN SCALE 8-10) 01/24/19 23:00 01/31/19 22:59 01/25/19 22:56 Bisacodyl (Dulcolax) 10 mg DAILY PRN RECTAL IF MOM INEFFECTIVE 01/24/19 23:00 02/23/19 22:59 Chlorthalidone (Chlorthalidone) 25 mg DAILY ORAL 01/25/19 09:00 02/24/19 08:59 01/26/19 09:38 Docusate Sodium (Colace) 100 mg TWICE A DAY ORAL 01/25/19 09:00 02/24/19 08:59 01/26/19 09:38 Enalapril Maleate (Vasotec) 10 mg DAILY ORAL 01/25/19 09:00 02/24/19 08:59 01/26/19 09:38 Enoxaparin Sodium (Lovenox) 40 mg DAILY SUBQ 01/25/19 09:00 02/24/19 08:59 01/25/19 09:30 Famotidine (Pepcid) 20 mg DAILY ORAL 01/25/19 09:00 02/24/19 08:59 01/26/19 09:38 Iopamidol (Isovue-300 100ml) 100 ml NOW PRN INJ Radiology Procedure 01/24/19 18:30 01/26/19 18:21 Lidocaine HCl (Xylocaine 1% 30ml) 30 ml NOW PRN INJ Radiology Procedure 01/25/19 12:15 01/27/19 12:08 Magnesium Hydroxide (Mom) 30 ml DAILY PRN ORAL Constipation 01/24/19 23:00 02/23/19 22:59 Metoprolol Succinate (Toprol XL) 25 mg DAILY ORAL 01/25/19 09:00 02/24/19 08:59 01/26/19 09:39 Sodium Phosphate (Fleet's Sodium Phosl Enema) 133 ml DAILY PRN RECTAL IF MOM & BISACODYL INEFFECTIVE 01/24/19 23:00 02/23/19 22:59 Assessment/Plan Assessment/Plan Hematology Consultation Date patient seen: Jan 26, 2019 Chief Complaint: cough , possible pneumonia Referring physician: Jason Moore Reason for Consultation: leukopenia, anemia Present Illness HPI This is an 83-year-old female with past medical history of CHF and hypertension was seen yesterday in the emergency room at [facility] for paroxysmal episodes of coughing which started Thursday night and was unusual for the patient patient was sent from alf to be evaluated for possible pneumonia she had a chest x-ray which showed left sulcus groove masslike lesion so she was called back to return to the hospital and she was admitted for further evaluation. Patient had CT scan of the chest showed 3.7 x 1.8 x 3 cm mass in the left costophrenic sulcus likely pleural-based concerning for neoplasm with 7 mm and 3 mm lingular nodule so infectious disease consultation was requested for possible antibiotic treatment. Patient underwent CT-guided biopsy of her lung mass today for further evaluation No fevers, chills, chest pain, palpitations, nausea, vomiting, diarrhea, dysuria , abdominal pain, shortness of breath, depression, visual changes, headache. However the patient has dementia and her answers are questionable Allergies: No Known Allergies (Unverified , 01/23/19) Medication History Scheduled Chlorthalidone* (Chlorthalidone*), 25 MG ORAL DAILY, (Reported) Docusate Sodium* (Docusil*), 100 MG ORAL TWICE A DAY, (Reported) Enalapril Maleate* (Enalapril Maleate*), 10 MG ORAL DAILY, (Reported) Famotidine (Famotidine), 20 MG ORAL TWICE A DAY, (Reported) Metoprolol Succinate* (Metoprolol Succinate*), 25 MG ORAL DAILY, (Reported) Scheduled PRN Acetaminophen* (Acetaminophen 325MG Tablet*), 650 MG ORAL Q4H PRN for MILD PAIN (PAIN SCALE 1-4), (Reported) Bisacodyl (Laxative Suppository), 10 MG RC for IF MOM INEFFECTIVE, (Reported) Hydrocodone Bit/Acetaminophen 5-325* ([place] 5-325*), 1 TAB ORAL Q6H PRN for MOD PAIN (PAIN SCALE 5-7), (Reported) Hydrocodone Bit/Acetaminophen 5-325* ([place] 5-325*), 2 TAB ORAL Q6H PRN for SEVERE PAIN (PAIN SCALE 8-10), (Reported) Magnesium Hydroxide* (Milk Of Magnesia*), 30 ML ORAL DAILY PRN for Constipation, (Reported) Na Phos,M-B/Na Phos,Di-Ba* (Fleet Enema*), 133 ML RECTAL DAILY PRN for IF MOM & BISACODYL INEFFECTIVE, (Reported) Discontinued Medications Metoprolol Tartrate* (Metoprolol Tartrate*), 25 MG ORAL EVERY 12 HOURS, ( Reported) Discontinued Reason: Prescription changed Patient History Limited by: age, medical condition History Provided By: Medical Record, EMS Healthcare decision maker Resuscitation status Full Code Advanced Directive on File No Past Medical/Surgical History Past Medical/Surgical History: (1) Dementia (2) CHF (congestive heart failure) (3) HTN (hypertension) ROS Review of Systems Constitutional: Reports: no symptoms Eye: Reports: no symptoms ENT: Reports: no symptoms Respiratory: Reports: cough Cardiovascular: Reports: no symptoms Gastrointestinal: Reports: no symptoms Genitourinary: Reports: no symptoms Musculoskeletal: Reports: no symptoms Skin: Reports: no symptoms Psychiatric: Reports: no symptoms Neurological: Reports: no symptoms Endocrine: Reports: no symptoms Hematologic/Lymphatic: Reports: no symptoms Physical Exam Physical Exam General Appearance: WD/WN, no apparent distress, alert, lethargic Lines, tubes and drains: peripheral HEENT: normocephalic, atraumatic, anicteric Neck: non-tender, normal alignment, supple, normal inspection Respiratory/Chest: chest wall non-tender, normal bs Cardiovascular/Chest: normal peripheral pulses Abdomen: normal bowel sounds, non tender, soft Genitourinary/Rectal: normal genital exam Extremities: normal range of motion, non-tender Skin Exam: normal pigmentation, warm/dry 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, alert Musculoskeletal: normal muscle bulk, no effusion Laboratory Tests Test 01/24/19 18:26 01/25/19 06:20 Urine Color Pale yellow Urine Appearance Clear Urine pH 7 (4.5-8.0) Urine Specific [place] 1.010 (1.005-1.035) Urine Protein 1+ (NEGATIVE) H Urine Glucose (UA) Negative (NEGATIVE) Urine Ketones Negative (NEGATIVE) Urine Blood 3+ (NEGATIVE) H Urine Nitrite Negative (NEGATIVE) Urine Bilirubin Negative (NEGATIVE) Urine Urobilinogen Normal MG/DL (0.0-1.0) Urine Leukocyte Esterase 1+ (NEGATIVE) H Urine RBC 5-10 /HPF (0 - 2) H Urine WBC 2-4 /HPF (0 - 2) Urine Squamous Epithelial Cells Few /LPF (NONE/OCC) Urine Bacteria Few /HPF (NONE) White Blood Count 2.1 K/UL (4.8-10.8) *L Red Blood Count 3.82 M/UL (4.20-5.40) L Hemoglobin 11.5 G/DL (12.0-16.0) L Hematocrit 35.1 % (37.0-47.0) L Mean Corpuscular Volume 92 FL (80-99) Mean Corpuscular Hemoglobin 30.2 PG (27.0-31.0) Mean Corpuscular Hemoglobin Concent 32.8 G/DL (32.0-36.0) Red Cell Distribution Width 12.6 % (11.6-14.8) Platelet Count 219 K/UL (150-450) Mean Platelet Volume 7.2 FL (6.5-10.1) Neutrophils (%) (Auto) % (45.0-75.0) Lymphocytes (%) (Auto) % (20.0-45.0) Monocytes (%) (Auto) % (1.0-10.0) Eosinophils (%) (Auto) % (0.0-3.0) Basophils (%) (Auto) % (0.0-2.0) Differential Total Cells Counted 100 Neutrophils % (Manual) 34 % (45-75) L Lymphocytes % (Manual) 47 % (20-45) H Monocytes % (Manual) 16 % (1-10) H Eosinophils % (Manual) 3 % (0-3) Basophils % (Manual) 0 % (0-2) Band Neutrophils 0 % (0-8) Platelet Estimate Adequate Platelet Morphology Normal Red Blood Cell Morphology Normal Sodium Level 140 MMOL/L (136-145) Potassium Level 3.4 MMOL/L (3.5-5.1) L Chloride Level 103 MMOL/L (98-107) Carbon Dioxide Level 28 MMOL/L (21-32) Anion Gap 9 mmol/L (5-15) Blood Urea Nitrogen 17 mg/dL (7-18) Creatinine 0.7 MG/DL (0.55-1.30) Estimat Glomerular Filtration Rate mL/min (>60) Glucose Level 88 MG/DL (74-106) Hemoglobin A1c 5.6 % (4.3-6.0) Calcium Level 8.6 MG/DL (8.5-10.1) Total Bilirubin 0.2 MG/DL (0.2-1.0) Aspartate Amino Transf (AST/SGOT) 26 U/L (15-37) Alanine Aminotransferase (ALT/SGPT) 16 U/L (12-78) Alkaline Phosphatase 104 U/L (46-116) Troponin I 0.007 ng/mL (0.000-0.056) Total Protein 6.8 G/DL (6.4-8.2) Albumin 3.0 G/DL (3.4-5.0) L Globulin 3.8 g/dL Albumin/Globulin Ratio 0.8 (1.0-2.7) L Triglycerides Level 90 MG/DL (30-150) Cholesterol Level 151 MG/DL (< 200) LDL Cholesterol 83 mg/dL (<100) HDL Cholesterol 52 MG/DL (40-60) Cholesterol/HDL Ratio 2.9 (3.3-4.4) L Microbiology Date/Time Source Procedure Growth Status 01/24/19 17:50 Rectum Received Height (Feet): 5 Height (Inches): 0.00 Weight (Pounds): 110 Medications Current Medications Medications (Trade) Dose Ordered Sig/Negro Route PRN Reason Start Time Stop Time Status Last Admin Dose Admin Acetaminophen (Tylenol) 650 mg Q4H PRN ORAL MILD PAIN (PAIN SCALE 1-4) 01/24/19 23:00 02/23/19 22:59 Acetaminophen/ Hydrocodone Bitart ([place] 5/325) 1 tab Q6H PRN ORAL MOD PAIN (PAIN SCALE 5-7) 01/24/19 23:00 01/31/19 22:59 Acetaminophen/ Hydrocodone Bitart ([place] 5/325) 2 tab Q6H PRN ORAL SEVERE PAIN (PAIN SCALE 8-10) 01/24/19 23:00 01/31/19 22:59 Bisacodyl (Dulcolax) 10 mg DAILY PRN RECTAL IF MOM INEFFECTIVE 01/24/19 23:00 02/23/19 22:59 Chlorthalidone (Chlorthalidone) 25 mg DAILY ORAL 01/25/19 09:00 02/24/19 08:59 01/25/19 09:30 Docusate Sodium (Colace) 100 mg TWICE A DAY ORAL 01/25/19 09:00 02/24/19 08:59 01/25/19 09:31 Enalapril Maleate (Vasotec) 10 mg DAILY ORAL 01/25/19 09:00 02/24/19 08:59 01/25/19 09:31 Enoxaparin Sodium (Lovenox) 40 mg DAILY SUBQ 01/25/19 09:00 02/24/19 08:59 01/25/19 09:30 Famotidine (Pepcid) 20 mg DAILY ORAL 01/25/19 09:00 02/24/19 08:59 01/25/19 09:29 Iopamidol (Isovue-300 100ml) 100 ml NOW PRN INJ Radiology Procedure 01/24/19 18:30 01/26/19 18:21 Lidocaine HCl (Xylocaine 1% 30ml) 30 ml NOW PRN INJ Radiology Procedure 01/25/19 12:15 01/27/19 12:08 Lidocaine HCl (Xylocaine 1% 30ml) 30 ml ONCE PRN INJ LINE 01/25/19 13:30 01/25/19 23:59 Magnesium Hydroxide (Mom) 30 ml DAILY PRN ORAL Constipation 01/24/19 23:00 02/23/19 22:59 Metoprolol Succinate (Toprol XL) 25 mg DAILY ORAL 01/25/19 09:00 02/24/19 08:59 01/25/19 09:29 Sodium Phosphate (Fleet's Sodium Phosl Enema) 133 ml DAILY PRN RECTAL IF MOM & BISACODYL INEFFECTIVE 01/24/19 23:00 02/23/19 22:59 Assessment/Recs: # Lung biopsy of lung mass - unsuccessful first attempt --> agree with repeat biopsy if patient not discharged --> consider ct a/p with iv contrast, r/o stage iv disease --> if any of the above positive consider tumor markers --> appreciate pulm recs # Thrombocytopenia - potential causes multifactorialcould be due to pna --> Hep panel and HIV ordered --> US abd to evaluate for cirrhosis and hsm ordered --> Peripheral smear ordered to evaluate for blasts /schistocytes --> abx and other meds have been reviewed --> ok for ppx if plt >50k w/ either heparin or lovenox --> Transfuse if Plt < 20k and fever, or if Plt < 10k without fever # Anemia of chronic disease --> transfuse as needed --> anemia panel has been ordered --> no evidence of hemolysis # PNA is on abx --> ID recs appreciated # Dementia --> cont supportive care # CHF # Dehydration The timing of this note does not necessarily reflect the time of the patient was seen. Greatly appreciate consultation! Joseluis Brar MD Jan 26, 2019 16:42
[2019-01-26] MEDS ORDERED: Isovue-300 100ml vial INJ PRN (16:45)
[2019-01-26 18:50] LABS: BASOPHILS % (AUTO) 0.7 % (0.0-2.0); EOSINOPHILS % (AUTO) 0.6 % (0.0-3.0); HEMATOCRIT 37.4 % (37.0-47.0); HEMOGLOBIN 12.4 G/DL (12.0-16.0); LYMPHOCYTES % (AUTO) 34.7 % (20.0-45.0); MEAN CORPUSCULAR VOLUME 91 FL (80-99); MONOCYTES % (AUTO) 8.4 % (1.0-10.0); NEUTROPHILS % (AUTO) 55.6 % (45.0-75.0); PLATELET COUNT 221 K/UL (150-450); RED BLOOD COUNT 4.13 M/UL (4.20-5.40); WHITE BLOOD COUNT 5.4 K/UL (4.8-10.8)
[2019-01-26 19:23] LABS: FERRITIN 307 NG/ML (8-388); LACTATE DEHYDROGENASE 164 U/L (81-234)
--- NOTE | 2019-01-26 19:30 | NUR ---
HAND-OFF: Report given to Nahum GONZALEZ. Patient is stable.
--- NOTE | 2019-01-26 19:45 | NUR ---
NURSE NOTES: Pt lying in bed w/bed in lowest position and call light within reach. Pt Tajik-speaking; alert to self only; VSS; lung sounds present b/l; and in no apparent distress at this time. IV site intact/asymptomatic & H/L'd and skin intact. Pt has no complaints or concerns at this time. Will continue to monitor.
[2019-01-26 19:50] LABS: % IRON SATURATION 11 % (15-50); IRON 27 ug/dL (50-175); TOTAL IRON BINDING CAPACITY 247 ug/dL (250-450)
--- NOTE | 2019-01-26 21:20 | Consultation ---
History of Present Illness General Chief Complaint: Abnormal Labs Referring physician: Dr Perez [facility] Reason for Consultation: possible left side pneumonia Present Illness Allergies: Coded Allergies: No Known Allergies (Unverified , 01/23/19) Medication History Scheduled Chlorthalidone* (Chlorthalidone*), 25 MG ORAL DAILY, (Reported) Docusate Sodium* (Docusil*), 100 MG ORAL TWICE A DAY, (Reported) Enalapril Maleate* (Enalapril Maleate*), 10 MG ORAL DAILY, (Reported) Famotidine (Famotidine), 20 MG ORAL TWICE A DAY, (Reported) Metoprolol Succinate* (Metoprolol Succinate*), 25 MG ORAL DAILY, (Reported) Scheduled PRN Acetaminophen* (Acetaminophen 325MG Tablet*), 650 MG ORAL Q4H PRN for MILD PAIN (PAIN SCALE 1-4), (Reported) Bisacodyl (Laxative Suppository), 10 MG RC for IF MOM INEFFECTIVE, (Reported) Hydrocodone Bit/Acetaminophen 5-325* ([place] 5-325*), 1 TAB ORAL Q6H PRN for MOD PAIN (PAIN SCALE 5-7), (Reported) Hydrocodone Bit/Acetaminophen 5-325* ([place] 5-325*), 2 TAB ORAL Q6H PRN for SEVERE PAIN (PAIN SCALE 8-10), (Reported) Magnesium Hydroxide* (Milk Of Magnesia*), 30 ML ORAL DAILY PRN for Constipation, (Reported) Na Phos,M-B/Na Phos,Di-Ba* (Fleet Enema*), 133 ML RECTAL DAILY PRN for IF MOM & BISACODYL INEFFECTIVE, (Reported) Discontinued Medications Metoprolol Tartrate* (Metoprolol Tartrate*), 25 MG ORAL EVERY 12 HOURS, ( Reported) Discontinued Reason: Prescription changed Patient History Healthcare decision maker Resuscitation status Full Code Advanced Directive on File No Physical Exam Last 24 Hour Vital Signs Date Time Temp Pulse Resp B/P (MAP) Pulse Ox O2 Delivery O2 Flow Rate FiO2 01/26/19 20:00 98.4 61 18 132/56 (81) 100 01/26/19 16:00 99.3 61 18 123/46 (71) 98 01/26/19 12:00 98.3 65 18 150/63 (92) 99 01/26/19 09:39 59 134/55 01/26/19 09:38 134/55 01/26/19 09:00 Room Air 01/26/19 08:00 98.5 59 16 134/55 (81) 99 01/26/19 04:00 98.4 59 16 130/55 (80) 97 01/26/19 00:00 98.5 55 18 132/58 (82) 97 Intake and Output 01/25/19 01/26/19 18:59 06:59 Intake Total 350 ml Balance 350 ml Intake Oral 350 ml # Voids 4 Laboratory Tests Test 01/26/19 17:50 White Blood Count 5.4 K/UL (4.8-10.8) # Red Blood Count 4.13 M/UL (4.20-5.40) L Hemoglobin 12.4 G/DL (12.0-16.0) Hematocrit 37.4 % (37.0-47.0) Mean Corpuscular Volume 91 FL (80-99) Mean Corpuscular Hemoglobin 30.1 PG (27.0-31.0) Mean Corpuscular Hemoglobin Concent 33.2 G/DL (32.0-36.0) Red Cell Distribution Width 12.0 % (11.6-14.8) Platelet Count 221 K/UL (150-450) Mean Platelet Volume 7.5 FL (6.5-10.1) Neutrophils (%) (Auto) 55.6 % (45.0-75.0) Lymphocytes (%) (Auto) 34.7 % (20.0-45.0) Monocytes (%) (Auto) 8.4 % (1.0-10.0) Eosinophils (%) (Auto) 0.6 % (0.0-3.0) Basophils (%) (Auto) 0.7 % (0.0-2.0) Differential Total Cells Counted 100 Neutrophils % (Manual) 48 % (45-75) Lymphocytes % (Manual) 36 % (20-45) Monocytes % (Manual) 9 % (1-10) Eosinophils % (Manual) 1 % (0-3) Basophils % (Manual) 1 % (0-2) Band Neutrophils 5 % (0-8) Platelet Estimate Adequate Platelet Morphology Normal Red Blood Cell Morphology Normal Reticulocyte Count 0.4 % (0.0-2.0) Sickle Cell Screen Pending Prothrombin Time 10.3 SEC (9.30-11.50) Prothromb Time International Ratio 1.0 (0.9-1.1) Fibrinogen 375 mg/dL (200-400) Iron Level 27 ug/dL (50-175) L Total Iron Binding Capacity 247 ug/dL (250-450) L Percent Iron Saturation 11 % (15-50) L Unsaturated Iron Binding 220 ug/dL (112-346) Ferritin 307 NG/ML (8-388) Lactate Dehydrogenase 164 U/L (81-234) Folate 27.3 NG/ML (8.6-58.9) Thyroid Stimulating Hormone (TSH) 3.147 uiU/mL (0.358-3.740) Hepatitis A IgM Antibody Pending Hepatitis B Surface Antigen Pending Hepatitis B Core IgM Antibody Pending Hepatitis C Antibody Pending Height (Feet): 5 Height (Inches): 0.00 Weight (Pounds): 97 Medications Current Medications Medications (Trade) Dose Ordered Sig/Negro Route PRN Reason Start Time Stop Time Status Last Admin Dose Admin Acetaminophen (Tylenol) 650 mg Q4H PRN ORAL MILD PAIN (PAIN SCALE 1-4) 01/24/19 23:00 02/23/19 22:59 Acetaminophen/ Hydrocodone Bitart ([place] 5/325) 1 tab Q6H PRN ORAL MOD PAIN (PAIN SCALE 5-7) 01/24/19 23:00 01/31/19 22:59 Acetaminophen/ Hydrocodone Bitart ([place] 5/325) 2 tab Q6H PRN ORAL SEVERE PAIN (PAIN SCALE 8-10) 01/24/19 23:00 01/31/19 22:59 01/25/19 22:56 Barium Sulfate (Readi-Cat 2) 450 ml NOW PRN ORAL Radiology Procedure 01/26/19 16:45 01/28/19 16:33 Bisacodyl (Dulcolax) 10 mg DAILY PRN RECTAL IF MOM INEFFECTIVE 01/24/19 23:00 02/23/19 22:59 Chlorthalidone (Chlorthalidone) 25 mg DAILY ORAL 01/25/19 09:00 02/24/19 08:59 01/26/19 09:38 Clonazepam (KlonoPIN) 0.5 mg BEDTIME ORAL 01/27/19 21:00 02/03/19 20:59 UNV Docusate Sodium (Colace) 100 mg TWICE A DAY ORAL 01/25/19 09:00 02/24/19 08:59 01/26/19 18:50 Enalapril Maleate (Vasotec) 10 mg DAILY ORAL 01/25/19 09:00 02/24/19 08:59 01/26/19 09:38 Enoxaparin Sodium (Lovenox) 40 mg DAILY SUBQ 01/25/19 09:00 02/24/19 08:59 01/25/19 09:30 Famotidine (Pepcid) 20 mg DAILY ORAL 01/25/19 09:00 02/24/19 08:59 01/26/19 09:38 Iopamidol (Isovue-300 100ml) 100 ml NOW PRN INJ Radiology Procedure 01/26/19 16:45 01/28/19 16:44 Lidocaine HCl (Xylocaine 1% 30ml) 30 ml NOW PRN INJ Radiology Procedure 01/25/19 12:15 01/27/19 12:08 Magnesium Hydroxide (Mom) 30 ml DAILY PRN ORAL Constipation 01/24/19 23:00 02/23/19 22:59 Metoprolol Succinate (Toprol XL) 25 mg DAILY ORAL 01/25/19 09:00 02/24/19 08:59 01/26/19 09:39 Sodium Phosphate (Fleet's Sodium Phosl Enema) 133 ml DAILY PRN RECTAL IF MOM & BISACODYL INEFFECTIVE 01/24/19 23:00 02/23/19 22:59 Assessment/Plan Problem List: (1) anxiety disorder (2) Insomnia ICD Codes: G47.00 - Insomnia, unspecified SNOMED: [id number] Assessment/Plan Klonopin 0.5mg po qhs provided ro/Vita Melgoza MD Jan 26, 2019 21:20
[2019-01-27] VITALS (11 sets, daily range): BP systolic 110–150; BP diastolic 44–60
--- NOTE | 2019-01-27 07:30 | NUR ---
HAND-OFF: Report given to LISA Burr.
[2019-01-27 07:36] LABS: BASOPHILS % (AUTO) 0.5 % (0.0-2.0); EOSINOPHILS % (AUTO) 0.8 % (0.0-3.0); HEMATOCRIT 37.9 % (37.0-47.0); HEMOGLOBIN 12.6 G/DL (12.0-16.0); LYMPHOCYTES % (AUTO) 32.9 % (20.0-45.0); MEAN CORPUSCULAR VOLUME 90 FL (80-99); MONOCYTES % (AUTO) 11.4 % (1.0-10.0); NEUTROPHILS % (AUTO) 54.4 % (45.0-75.0); PLATELET COUNT 215 K/UL (150-450); RED CELL DISTRIBUTION WIDTH 12.4 % (11.6-14.8); WHITE BLOOD COUNT 4.6 K/UL (4.8-10.8)
--- NOTE | 2019-01-27 07:45 | NUR ---
NURSE NOTES: Received report from LISA Sidhu. Rounding done with outgoing nurse. Patient kittitian peaking only. Patient is NPO for CT of abd. pelvis. Denies any pain at this time. Bed in lowest position, call light within reach. Will continue to monitor.
[2019-01-27] MEDS: Metoprolol Succinate XL 25mg tab ORAL SCH (08:37)
[2019-01-27] MEDS: Docusate 100mg cap ORAL SCH ×2 (08:37→18:06)
[2019-01-27] MEDS: Enoxaparin 40mg Inj SUBQ SCH (08:38)
--- NOTE | 2019-01-27 09:34 | Pulmonology Progress Note ---
Assessment/Plan Assessment/Plan 1. Abnormal chest x-ray. Lung mass 2. Cough. 3. Cognitive impairment. DISCUSSION: I will follow carefully. Pleural based left sided lung mass seen; s/p attempted biopsy (unsuccessful) Has small apical PTX Will need repeat attempt at biopsy Subjective Interval Events: No new events Constitutional: Reports: no symptoms HEENT: Repors: no symptoms Respiratory: Reports: no symptoms Cardiovascular: Reports: no symptoms Gastrointestinal/Abdominal: Reports: no symptoms Genitourinary: Reports: no symptoms Allergies: Coded Allergies: No Known Allergies (Unverified , 01/23/19) Objective Last 24 Hour Vital Signs Date Time Temp Pulse Resp B/P (MAP) Pulse Ox O2 Delivery O2 Flow Rate FiO2 01/27/19 08:37 63 150/60 01/27/19 08:37 150/60 01/27/19 08:00 98.5 63 18 150/60 (90) 98 01/27/19 03:45 98.3 61 18 113/55 (74) 100 01/26/19 23:45 98.7 64 18 115/80 (92) 100 01/26/19 21:00 Room Air 01/26/19 20:00 98.4 61 18 132/56 (81) 100 01/26/19 16:00 99.3 61 18 123/46 (71) 98 01/26/19 12:00 98.3 65 18 150/63 (92) 99 01/26/19 09:39 59 134/55 01/26/19 09:38 134/55 Intake and Output 01/26/19 01/27/19 19:00 07:00 Intake Total 480 ml 120 ml Balance 480 ml 120 ml Intake Oral 480 ml 120 ml # Voids 3 1 General Appearance: no acute distress HEENT: normocephalic Respiratory/Chest: chest wall non-tender, lungs clear Cardiovascular: normal peripheral pulses, normal rate Abdomen: normal bowel sounds Microbiology Date/Time Source Procedure Growth Status 01/24/19 16:25 Blood Blood Culture - Preliminary NO GROWTH AFTER 48 HOURS Resulted 01/24/19 16:25 Blood Blood Culture - Preliminary NO GROWTH AFTER 48 HOURS Resulted 01/24/19 17:50 Nasal Nares MRSA Culture - Final NO METHICILLIN RESISTANT STAPH AUREUS... Complete 01/24/19 16:25 Nasal Nares Influenza Types A,B Antigen (DALE) - Final Complete 01/25/19 07:15 Rectum - Final NO CARBAPENEM-RESISTANT ENTEROBACTERI... Complete 01/24/19 17:50 Rectum VRE Culture - Final NO VANCOMYCIN RESISTANT ENTEROCOCCUS ... Complete Laboratory Tests 01/26/19 17:50: White Blood Count 5.4#, Red Blood Count 4.13L, Hemoglobin 12.4, Hematocrit 37.4 , Mean Corpuscular Volume 91, Mean Corpuscular Hemoglobin 30.1, Mean Corpuscular Hemoglobin Concent 33.2, Red Cell Distribution Width 12.0, Platelet Count 221, Mean Platelet Volume 7.5, Neutrophils (%) (Auto) 55.6, Lymphocytes (% ) (Auto) 34.7, Monocytes (%) (Auto) 8.4, Eosinophils (%) (Auto) 0.6, Basophils ( %) (Auto) 0.7, Differential Total Cells Counted 100, Neutrophils % (Manual) 48, Lymphocytes % (Manual) 36, Monocytes % (Manual) 9, Eosinophils % (Manual) 1, Basophils % (Manual) 1, Band Neutrophils 5, Platelet Estimate Adequate, Platelet Morphology Normal, Red Blood Cell Morphology Normal, Reticulocyte Count 0.4, Sickle Cell Screen [Pending], Prothrombin Time 10.3, Prothromb Time International Ratio 1.0, Fibrinogen 375, Iron Level 27L, Total Iron Binding Capacity 247L, Percent Iron Saturation 11L, Unsaturated Iron Binding 220, Ferritin 307, Lactate Dehydrogenase 164, Folate 27.3, Thyroid Stimulating Hormone (TSH) 3.147, Hepatitis A IgM Antibody [Pending], Hepatitis B Surface Antigen [Pending], Hepatitis B Core IgM Antibody [Pending], Hepatitis C Antibody [Pending] 01/27/19 05:50: White Blood Count 4.6L, Red Blood Count 4.20, Hemoglobin 12.6, Hematocrit 37.9, Mean Corpuscular Volume 90, Mean Corpuscular Hemoglobin 30.0, Mean Corpuscular Hemoglobin Concent 33.3, Red Cell Distribution Width 12.4, Platelet Count 215, Mean Platelet Volume 8.1, Neutrophils (%) (Auto) 54.4, Lymphocytes (%) (Auto) 32.9, Monocytes (%) (Auto) 11.4H, Eosinophils (%) (Auto) 0.8, Basophils (%) ( Auto) 0.5 Current Medications Medications (Trade) Dose Ordered Sig/Negro Route PRN Reason Start Time Stop Time Status Last Admin Dose Admin Acetaminophen (Tylenol) 650 mg Q4H PRN ORAL MILD PAIN (PAIN SCALE 1-4) 01/24/19 23:00 02/23/19 22:59 Acetaminophen/ Hydrocodone Bitart ([place] 5/325) 1 tab Q6H PRN ORAL MOD PAIN (PAIN SCALE 5-7) 01/24/19 23:00 01/31/19 22:59 Acetaminophen/ Hydrocodone Bitart ([place] 5/325) 2 tab Q6H PRN ORAL SEVERE PAIN (PAIN SCALE 8-10) 01/24/19 23:00 01/31/19 22:59 01/25/19 22:56 Barium Sulfate (Readi-Cat 2) 450 ml NOW PRN ORAL Radiology Procedure 01/26/19 16:45 01/28/19 16:33 Bisacodyl (Dulcolax) 10 mg DAILY PRN RECTAL IF MOM INEFFECTIVE 01/24/19 23:00 02/23/19 22:59 Chlorthalidone (Chlorthalidone) 25 mg DAILY ORAL 01/25/19 09:00 02/24/19 08:59 01/27/19 08:36 Clonazepam (KlonoPIN) 0.5 mg BEDTIME ORAL 01/27/19 21:00 02/03/19 20:59 Docusate Sodium (Colace) 100 mg TWICE A DAY ORAL 01/25/19 09:00 02/24/19 08:59 01/27/19 08:37 Enalapril Maleate (Vasotec) 10 mg DAILY ORAL 01/25/19 09:00 02/24/19 08:59 01/27/19 08:37 Enoxaparin Sodium (Lovenox) 40 mg DAILY SUBQ 01/25/19 09:00 02/24/19 08:59 01/27/19 08:38 Famotidine (Pepcid) 20 mg DAILY ORAL 01/25/19 09:00 02/24/19 08:59 01/27/19 08:36 Iopamidol (Isovue-300 100ml) 100 ml NOW PRN INJ Radiology Procedure 01/26/19 16:45 01/28/19 16:44 Lidocaine HCl (Xylocaine 1% 30ml) 30 ml NOW PRN INJ Radiology Procedure 01/25/19 12:15 01/27/19 12:08 Magnesium Hydroxide (Mom) 30 ml DAILY PRN ORAL Constipation 01/24/19 23:00 02/23/19 22:59 Metoprolol Succinate (Toprol XL) 25 mg DAILY ORAL 01/25/19 09:00 02/24/19 08:59 01/27/19 08:37 Sodium Phosphate (Fleet's Sodium Phosl Enema) 133 ml DAILY PRN RECTAL IF MOM & BISACODYL INEFFECTIVE 01/24/19 23:00 02/23/19 22:59 Hussain Solitario MD Jan 27, 2019 09:34
--- NOTE | 2019-01-27 10:25 | NUR ---
NURSE NOTES: Patient off the unit for CT of abd.pelvis in stable condition.
--- NOTE | 2019-01-27 10:57 | NUR ---
RADIOLOGY DEPT CHEST X-RAY DONE.-P.DYE
--- NOTE | 2019-01-27 11:05 | NUR ---
NURSE NOTES: Patient came back to unit in stable condition.
--- NOTE | 2019-01-27 11:08 | General Progress Note ---
Assessment/Plan Problem List: (1) anxiety disorder (2) Insomnia ICD Codes: G47.00 - Insomnia, unspecified SNOMED: [id number] Assessment/Plan Klonopin 0.5mg po qhs provided ro/st Subjective Neurologic/Psychiatric: Reports: anxiety, emotional problems Allergies: Coded Allergies: No Known Allergies (Unverified , 01/23/19) Objective Last 24 Hour Vital Signs Date Time Temp Pulse Resp B/P (MAP) Pulse Ox O2 Delivery O2 Flow Rate FiO2 01/27/19 09:00 Room Air 01/27/19 08:37 63 150/60 01/27/19 08:37 150/60 01/27/19 08:00 98.5 63 18 150/60 (90) 98 01/27/19 03:45 98.3 61 18 113/55 (74) 100 01/26/19 23:45 98.7 64 18 115/80 (92) 100 01/26/19 21:00 Room Air 01/26/19 20:00 98.4 61 18 132/56 (81) 100 01/26/19 16:00 99.3 61 18 123/46 (71) 98 01/26/19 12:00 98.3 65 18 150/63 (92) 99 Intake and Output 01/26/19 01/27/19 19:00 07:00 Intake Total 480 ml 120 ml Balance 480 ml 120 ml Intake Oral 480 ml 120 ml # Voids 3 1 Laboratory Tests 01/26/19 17:50: White Blood Count 5.4#, Red Blood Count 4.13L, Hemoglobin 12.4, Hematocrit 37.4 , Mean Corpuscular Volume 91, Mean Corpuscular Hemoglobin 30.1, Mean Corpuscular Hemoglobin Concent 33.2, Red Cell Distribution Width 12.0, Platelet Count 221, Mean Platelet Volume 7.5, Neutrophils (%) (Auto) 55.6, Lymphocytes (% ) (Auto) 34.7, Monocytes (%) (Auto) 8.4, Eosinophils (%) (Auto) 0.6, Basophils ( %) (Auto) 0.7, Differential Total Cells Counted 100, Neutrophils % (Manual) 48, Lymphocytes % (Manual) 36, Monocytes % (Manual) 9, Eosinophils % (Manual) 1, Basophils % (Manual) 1, Band Neutrophils 5, Other Cell Type Pathologist comment , Platelet Estimate Adequate, Platelet Morphology Normal, Red Blood Cell Morphology Normal, Reticulocyte Count 0.4, Sickle Cell Screen [Pending], Prothrombin Time 10.3, Prothromb Time International Ratio 1.0, Fibrinogen 375, Iron Level 27L, Total Iron Binding Capacity 247L, Percent Iron Saturation 11L, Unsaturated Iron Binding 220, Ferritin 307, Lactate Dehydrogenase 164, Folate 27.3, Thyroid Stimulating Hormone (TSH) 3.147, Hepatitis A IgM Antibody [Pending ], Hepatitis B Surface Antigen [Pending], Hepatitis B Core IgM Antibody [Pending ], Hepatitis C Antibody [Pending] 01/27/19 05:50: White Blood Count 4.6L, Red Blood Count 4.20, Hemoglobin 12.6, Hematocrit 37.9, Mean Corpuscular Volume 90, Mean Corpuscular Hemoglobin 30.0, Mean Corpuscular Hemoglobin Concent 33.3, Red Cell Distribution Width 12.4, Platelet Count 215, Mean Platelet Volume 8.1, Neutrophils (%) (Auto) 54.4, Lymphocytes (%) (Auto) 32.9, Monocytes (%) (Auto) 11.4H, Eosinophils (%) (Auto) 0.8, Basophils (%) ( Auto) 0.5 Height (Feet): 5 Height (Inches): 0.00 Weight (Pounds): 97 General Appearance: no apparent distress, alert, agitated Vita Monsivais MD Jan 27, 2019 11:08
--- NOTE | 2019-01-27 12:21 | Diagnostic Imaging Report ---
Indication: Cough Technique: 2 views of the chest Comparison: One view chest 01/26/2019 Findings: Small left apical pneumothorax is again demonstrated, decreased in size from the previous study. Left lateral costophrenic sulcus mass is less well-seen than on the previous exam. Lungs and pleural spaces are clear otherwise. The heart size is normal. Impression: Decreased small left pneumothorax, over one day, now estimated at less than 5% No acute process
--- NOTE | 2019-01-27 12:34 | Diagnostic Imaging Report ---
Clinical Indication: Abdominal pain, lung mass Technique: Patient given oral contrast. IV administration nonionic contrast. Venous phase spiral acquisition obtained through the abdomen and pelvis. Multiplanar reconstructions were generated. Total dose length product 489.76 mGycm. CTDIvol(s) 10.99 mGy. Dose reduction achieved using automated exposure control Comparison: none. Reference made to chest CT dated 01/24/2019 Findings: The included lung bases demonstrate previously reported left costophrenic sulcus parenchymal mass, measuring 4 cm long axis dimension. Sliver of a pneumothorax is demonstrated. Cylindrical appearing opacity in the right middle lobe is again demonstrated, may reflect scarring or a debris-filled bronchus. A similar opacity is also again seen in the posterior medial right lower lobe. Posterior dependent atelectatic changes are seen in the bilateral lung bases. The gallbladder is mildly distended. No gallstones are demonstrated. The liver demonstrates a subcentimeter low-attenuation in segment 8, too small to characterize. The bile ducts, pancreas, spleen, adrenals, left kidney are unremarkable. The right kidney demonstrates a 1 cm upper pole cyst. It demonstrates a subcentimeter interpolar region lesion which is too small to characterize as well as other smaller lower pole too small to characterize hypodensities. The uterus demonstrates arcuate artery calcifications, is otherwise unremarkable. No pelvic mass or adenopathy. The appendix is normal. There are a few colonic diverticula. No evidence of diverticulitis. No small bowel distention or small bowel wall thickening. Ingested contrast has traversed the entirety of the GI tract. The distal esophagus, stomach, duodenum are unremarkable. Surgical hardware is seen in the right hip. Fracture fragments appear incompletely united despite this, however. There are degenerative changes of lower lumbar spine.. Impression: Left lateral basilar lung mass, also previously described. Biopsy pending Minimal left pneumothorax, residual from previous biopsy attempt, noted Cylindrical appearing opacities in the right middle and lower lobe, may reflect scarring or debris-filled bronchi No acute abdominal or pelvic process. No evidence of abdominal or pelvic metastases Subcentimeter low-attenuation liver lesion, too small to characterize, most likely benign simple cyst or bile hamartoma Right renal cyst. Right renal subcentimeter low-attenuation lesions, too small to characterize, most likely benign simple cortical cysts. No further follow-up necessary Surgically repaired right hip intertrochanteric fracture. Fracture fragments appear incompletely united, despite this. Correlate with acuity of the fracture Colonic diverticulosis. No evidence of diverticulitis Degenerative lumbar spondylosis The CT scanner at [facility] is accredited by the [employer] and the scans are performed using protocols designed to limit radiation exposure to as low as reasonably achievable to attain images of sufficient resolution adequate for diagnostic evaluation.
--- NOTE | 2019-01-27 13:28 | General Progress Note ---
Assessment/Plan Assessment/Plan S: I am fine O: denies chest pain or sob PHYSICAL EXAMINATION:HEENT: Atraumatic and normocephalic. CHEST: Clear to auscultation HEART: S1 and S2. Regular rate and rhythm. ABDOMEN: Soft. No organomegaly. MUSCULOSKELETAL: No gross sensory deficits. NEUROLOGY: The patient is awake, alert, and oriented x3. IMAGING: Chest x-ray dated January 24, 2019, reviewed. ASSESSMENT: 1. Left-sided solitary pulmonary mass.Post CT-guided Bx, unsuccessful first attempt 2. Hypertension. 3. Congestive heart failure-stable at this time. 4. Gastrointestinal and DVT prophylaxis. Plan: Discussed with the Dtr, agreed for second attempt for obtaining Bx. Post CT-guided Bx, unsuccessful first attempt, will proceed with the second Attempt today Subjective Allergies: Coded Allergies: No Known Allergies (Unverified , 01/23/19) Objective Last 24 Hour Vital Signs Date Time Temp Pulse Resp B/P (MAP) Pulse Ox O2 Delivery O2 Flow Rate FiO2 01/27/19 12:00 98.5 65 18 115/55 (75) 100 01/27/19 09:00 Room Air 01/27/19 08:37 63 150/60 01/27/19 08:37 150/60 01/27/19 08:00 98.5 63 18 150/60 (90) 98 01/27/19 03:45 98.3 61 18 113/55 (74) 100 01/26/19 23:45 98.7 64 18 115/80 (92) 100 01/26/19 21:00 Room Air 01/26/19 20:00 98.4 61 18 132/56 (81) 100 01/26/19 16:00 99.3 61 18 123/46 (71) 98 Intake and Output 01/26/19 01/27/19 19:00 07:00 Intake Total 480 ml 120 ml Balance 480 ml 120 ml Intake Oral 480 ml 120 ml # Voids 3 1 Laboratory Tests 01/26/19 17:50: White Blood Count 5.4#, Red Blood Count 4.13L, Hemoglobin 12.4, Hematocrit 37.4 , Mean Corpuscular Volume 91, Mean Corpuscular Hemoglobin 30.1, Mean Corpuscular Hemoglobin Concent 33.2, Red Cell Distribution Width 12.0, Platelet Count 221, Mean Platelet Volume 7.5, Neutrophils (%) (Auto) 55.6, Lymphocytes (% ) (Auto) 34.7, Monocytes (%) (Auto) 8.4, Eosinophils (%) (Auto) 0.6, Basophils ( %) (Auto) 0.7, Differential Total Cells Counted 100, Neutrophils % (Manual) 48, Lymphocytes % (Manual) 36, Monocytes % (Manual) 9, Eosinophils % (Manual) 1, Basophils % (Manual) 1, Band Neutrophils 5, Other Cell Type Pathologist comment , Platelet Estimate Adequate, Platelet Morphology Normal, Red Blood Cell Morphology Normal, Reticulocyte Count 0.4, Sickle Cell Screen [Pending], Prothrombin Time 10.3, Prothromb Time International Ratio 1.0, Fibrinogen 375, Iron Level 27L, Total Iron Binding Capacity 247L, Percent Iron Saturation 11L, Unsaturated Iron Binding 220, Ferritin 307, Lactate Dehydrogenase 164, Folate 27.3, Thyroid Stimulating Hormone (TSH) 3.147, Hepatitis A IgM Antibody [Pending ], Hepatitis B Surface Antigen [Pending], Hepatitis B Core IgM Antibody [Pending ], Hepatitis C Antibody [Pending] 01/27/19 05:50: White Blood Count 4.6L, Red Blood Count 4.20, Hemoglobin 12.6, Hematocrit 37.9, Mean Corpuscular Volume 90, Mean Corpuscular Hemoglobin 30.0, Mean Corpuscular Hemoglobin Concent 33.3, Red Cell Distribution Width 12.4, Platelet Count 215, Mean Platelet Volume 8.1, Neutrophils (%) (Auto) 54.4, Lymphocytes (%) (Auto) 32.9, Monocytes (%) (Auto) 11.4H, Eosinophils (%) (Auto) 0.8, Basophils (%) ( Auto) 0.5 Height (Feet): 5 Height (Inches): 0.00 Weight (Pounds): 97 Lawrence Perez MD Jan 27, 2019 13:28
[2019-01-27] MEDS ORDERED: Lidocaine 1% Plain 30 ml INJ ONE (13:30)
--- NOTE | 2019-01-27 14:06 | NUR ---
CASE MANAGEMENT:REVIEW 01/27/19 SI: PNA. LT SIDED PULMONARY MASS 98.5 65 18 115/55 100% ON RA WBC-4.6 IS: NORCO PO Q6HRS PRN TOPROL XL PO QD PEPCID PO QD VASOTEC PO QD LOVENOX SQ QD KLONOPIN PO QHS : MED/SURG STATUS 3 EAST DCP: FROM CV EAST PLAN: RE-ATTEMPT CT GUIDED BX
--- NOTE | 2019-01-27 14:28 | Brief Operative Note ---
Immediate Post Operative Note Operative Note Chief Complaint: SOB Pre-op Diagnosis: L lung mass on CT scan Procedure: CT guided L lung bx (attempted x 2) Post-op Diagnosis: same as pre-op Surgeon: Vanessa Rush Anesthesia: local Specimen: none Complications: yes - No complication but unable to obtain specimen Fluids: none Implant(s) used?: No Yahir Rush MD Jan 27, 2019 14:28
--- NOTE | 2019-01-27 14:36 | NUR ---
NURSE NOTES: CT guided lung biopsy was unsuccessful. Patient came up to the unit in stable condition. Patient lying on left laterally.
--- NOTE | 2019-01-27 16:03 | Infectious Diseases Prog Note ---
Assessment/Plan Problems: (1) Pneumonia Assessment & Plan: keep off antibiotics for now since no fever or leukocytosis , no phlegm , and CT showed lung mass only , monitor CXR (2) Neutropenia Assessment & Plan: rule out bone marrow supression , or mets . oncology is following , will consider antibiotics if spikes fever (3) Lung mass Assessment & Plan: S/P CT guided biopsy by IR, was not successful , for repeated biopsy tomorrow , radiology and oncology are following (4) Dementia Assessment & Plan: continue supportive care (5) CHF (congestive heart failure) Assessment & Plan: continue cardiac meds as per primary (6) Dehydration Assessment & Plan: continue hydration as needed , encourage oral intake (7) Pneumothorax of left lung after biopsy Assessment & Plan: had second attempt today but unsuccessful. continue close monitor of CXR , radiologist is following Subjective Constitutional: Reports: no symptoms HEENT: Reports: no symptoms Respiratory: Reports: dry cough Breasts: Reports: no symptoms Cardiovascular: Reports: no symptoms Gastrointestinal/Abdominal: Reports: no symptoms Genitourinary: Reports: no symptoms Neurologic: Reports: no symptoms Psychiatric: Reports: no symptoms Skin: Reports: no symptoms Endocrine: Reports: no symptoms Hematologic: Reports: no symptoms Musculoskeletal: Reports: no symptoms Allergies: Coded Allergies: No Known Allergies (Unverified , 01/23/19) Subjective she had second attempts today for left side lung biopsy, unsuccessful Objective Vital Signs Last 24 Hour Vital Signs Date Time Temp Pulse Resp B/P (MAP) Pulse Ox O2 Delivery O2 Flow Rate FiO2 01/27/19 14:20 62 18 116/47 (70) 100 01/27/19 14:15 58 18 118/47 (70) 98 01/27/19 14:10 56 18 115/44 (67) 100 01/27/19 14:05 58 18 122/44 (70) 98 01/27/19 14:00 54 18 124/45 (71) 100 01/27/19 13:23 58 18 01/27/19 12:00 98.5 65 18 115/55 (75) 100 01/27/19 09:00 Room Air 01/27/19 08:37 63 150/60 01/27/19 08:37 150/60 01/27/19 08:00 98.5 63 18 150/60 (90) 98 01/27/19 03:45 98.3 61 18 113/55 (74) 100 01/26/19 23:45 98.7 64 18 115/80 (92) 100 01/26/19 21:00 Room Air 01/26/19 20:00 98.4 61 18 132/56 (81) 100 01/26/19 16:00 99.3 61 18 123/46 (71) 98 Height (Feet): 5 Height (Inches): 0.00 Weight (Pounds): 97 General Appearance: no acute distress, cachetic HEENT: normocephalic, atraumatic, anicteric, mucous membranes moist, PERRL Respiratory/Chest: chest wall non-tender, lungs clear, normal breath sounds, no respiratory distress, no accessory muscle use Cardiovascular: normal peripheral pulses, normal rate, regular rhythm, no gallop/murmur, no JVD Abdomen: normal bowel sounds, soft, non tender, no organomegaly, non distended , no mass, no scars Extremities: no cyanosis, no clubbing Skin: no rash, no lesions, no ulcers Neurologic/Psychiatric: alert, oriented x 3, responsive, normal mood/affect Lymphatic: no neck adenopathy, no groin adenopathy Musculoskeletal: normal muscle bulk, no effusion Microbiology Date/Time Source Procedure Growth Status 01/24/19 16:25 Blood Blood Culture - Preliminary NO GROWTH AFTER 48 HOURS Resulted 01/24/19 16:25 Blood Blood Culture - Preliminary NO GROWTH AFTER 48 HOURS Resulted 01/24/19 17:50 Nasal Nares MRSA Culture - Final NO METHICILLIN RESISTANT STAPH AUREUS... Complete 01/24/19 16:25 Nasal Nares Influenza Types A,B Antigen (DALE) - Final Complete 01/25/19 07:15 Rectum - Final NO CARBAPENEM-RESISTANT ENTEROBACTERI... Complete 01/24/19 17:50 Rectum VRE Culture - Final NO VANCOMYCIN RESISTANT ENTEROCOCCUS ... Complete Laboratory Tests Test 01/26/19 17:50 01/27/19 05:50 White Blood Count 5.4 K/UL (4.8-10.8) # 4.6 K/UL (4.8-10.8) L Red Blood Count 4.13 M/UL (4.20-5.40) L 4.20 M/UL (4.20-5.40) Hemoglobin 12.4 G/DL (12.0-16.0) 12.6 G/DL (12.0-16.0) Hematocrit 37.4 % (37.0-47.0) 37.9 % (37.0-47.0) Mean Corpuscular Volume 91 FL (80-99) 90 FL (80-99) Mean Corpuscular Hemoglobin 30.1 PG (27.0-31.0) 30.0 PG (27.0-31.0) Mean Corpuscular Hemoglobin Concent 33.2 G/DL (32.0-36.0) 33.3 G/DL (32.0-36.0) Red Cell Distribution Width 12.0 % (11.6-14.8) 12.4 % (11.6-14.8) Platelet Count 221 K/UL (150-450) 215 K/UL (150-450) Mean Platelet Volume 7.5 FL (6.5-10.1) 8.1 FL (6.5-10.1) Neutrophils (%) (Auto) 55.6 % (45.0-75.0) 54.4 % (45.0-75.0) Lymphocytes (%) (Auto) 34.7 % (20.0-45.0) 32.9 % (20.0-45.0) Monocytes (%) (Auto) 8.4 % (1.0-10.0) 11.4 % (1.0-10.0) H Eosinophils (%) (Auto) 0.6 % (0.0-3.0) 0.8 % (0.0-3.0) Basophils (%) (Auto) 0.7 % (0.0-2.0) 0.5 % (0.0-2.0) Differential Total Cells Counted 100 Neutrophils % (Manual) 48 % (45-75) Lymphocytes % (Manual) 36 % (20-45) Monocytes % (Manual) 9 % (1-10) Eosinophils % (Manual) 1 % (0-3) Basophils % (Manual) 1 % (0-2) Band Neutrophils 5 % (0-8) Other Cell Type Pathologist comment Platelet Estimate Adequate Platelet Morphology Normal Red Blood Cell Morphology Normal Reticulocyte Count 0.4 % (0.0-2.0) Sickle Cell Screen Pending Prothrombin Time 10.3 SEC (9.30-11.50) Prothromb Time International Ratio 1.0 (0.9-1.1) Fibrinogen 375 mg/dL (200-400) Iron Level 27 ug/dL (50-175) L Total Iron Binding Capacity 247 ug/dL (250-450) L Percent Iron Saturation 11 % (15-50) L Unsaturated Iron Binding 220 ug/dL (112-346) Ferritin 307 NG/ML (8-388) Lactate Dehydrogenase 164 U/L (81-234) Folate 27.3 NG/ML (8.6-58.9) Thyroid Stimulating Hormone (TSH) 3.147 uiU/mL (0.358-3.740) Hepatitis A IgM Antibody Pending Hepatitis B Surface Antigen Pending Hepatitis B Core IgM Antibody Pending Hepatitis C Antibody Pending Current Medications Medications (Trade) Dose Ordered Sig/Negro Route PRN Reason Start Time Stop Time Status Last Admin Dose Admin Acetaminophen (Tylenol) 650 mg Q4H PRN ORAL MILD PAIN (PAIN SCALE 1-4) 01/24/19 23:00 02/23/19 22:59 Acetaminophen/ Hydrocodone Bitart ([place] 5/325) 1 tab Q6H PRN ORAL MOD PAIN (PAIN SCALE 5-7) 01/24/19 23:00 01/31/19 22:59 Acetaminophen/ Hydrocodone Bitart ([place] 5/325) 2 tab Q6H PRN ORAL SEVERE PAIN (PAIN SCALE 8-10) 01/24/19 23:00 01/31/19 22:59 01/25/19 22:56 Barium Sulfate (Readi-Cat 2) 450 ml NOW PRN ORAL Radiology Procedure 01/26/19 16:45 01/28/19 16:33 Bisacodyl (Dulcolax) 10 mg DAILY PRN RECTAL IF MOM INEFFECTIVE 01/24/19 23:00 02/23/19 22:59 Chlorthalidone (Chlorthalidone) 25 mg DAILY ORAL 01/25/19 09:00 02/24/19 08:59 01/27/19 08:36 Clonazepam (KlonoPIN) 0.5 mg BEDTIME ORAL 01/27/19 21:00 02/03/19 20:59 Docusate Sodium (Colace) 100 mg TWICE A DAY ORAL 01/25/19 09:00 02/24/19 08:59 01/27/19 08:37 Enalapril Maleate (Vasotec) 10 mg DAILY ORAL 01/25/19 09:00 02/24/19 08:59 01/27/19 08:37 Enoxaparin Sodium (Lovenox) 40 mg DAILY SUBQ 01/25/19 09:00 02/24/19 08:59 01/27/19 08:38 Famotidine (Pepcid) 20 mg DAILY ORAL 01/25/19 09:00 02/24/19 08:59 01/27/19 08:36 Iopamidol (Isovue-300 100ml) 100 ml NOW PRN INJ Radiology Procedure 01/26/19 16:45 01/28/19 16:44 Magnesium Hydroxide (Mom) 30 ml DAILY PRN ORAL Constipation 01/24/19 23:00 02/23/19 22:59 Metoprolol Succinate (Toprol XL) 25 mg DAILY ORAL 01/25/19 09:00 02/24/19 08:59 01/27/19 08:37 Sodium Phosphate (Fleet's Sodium Phosl Enema) 133 ml DAILY PRN RECTAL IF MOM & BISACODYL INEFFECTIVE 01/24/19 23:00 02/23/19 22:59 Melecio Rodriguez M.D. Jan 27, 2019 16:03
--- NOTE | 2019-01-27 16:05 | NUR ---
NURSE NOTES: Dr. Perez ordered resume diet and discharge to previous assisted with assisted meds. Noted and carried out.
--- NOTE | 2019-01-27 16:25 | NUR ---
*-* DISCHARGE PLANNING *-* PATIENT HAS BEEN REFER TO: SELENA RAYA P:[phone] F:[phone]
--- NOTE | 2019-01-27 16:36 | Diagnostic Imaging Report ---
Indication: Status post lung biopsy Technique: One view of the chest Comparison: 5 hours earlier Findings: Small left apical pneumothorax appears slightly smaller than on the previous study. 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 The lungs and pleural spaces otherwise remain clear. Normal heart size. Impression: Slightly improved small left apical pneumothorax, status post repeat lung biopsy attempt
--- NOTE | 2019-01-27 16:45 | Diagnostic Imaging Report ---
Indication: Left lung mass demonstrated on recent chest radiograph and CT scan Technique: Informed consent obtained prior to commencement of the procedure from patient's daughter. Procedural timeout performed. Localizing acquisitions obtained through the lower chest. Intended puncture site was marked, sterilely prepped and draped. Local anesthesia with 1% lidocaine. Under CT guidance a 19-gauge guide needle was advanced into the expected location of the target lesion. Follow-up CT slices obtained, demonstrating malposition of the needle and development of a small pneumothorax due to inadvertent puncture of the adjacent lung. Given the small size of the pneumothorax, 2 more attempts were made at accessing the lesion with the guide needle, but these were unsuccessful, as the needle appeared to bounce off of the lesion. The exam was then aborted. Patient returned 2 days later for repeat attempt. Informed consent obtained from the patient's daughter. Procedural timeout performed. Intended puncture site marked,, sterilely prepped and draped. Local anesthesia with lidocaine. Under CT guidance, multiple attempts made at accessing the target lesion using 19-gauge guide needle. However, it was not possible to achieve optimal guide needle position for biopsy, despite multiple attempts. This was complicated by inconsistent respirations from the patient as well as changes in position of the target lesion. At one point, what appeared to be satisfactory guide needle position was achieved, but when the biopsy needle was advanced in the semiautomatic mode, it was outside the target lesion. Ultimately, it was elected to abandon any further attempts, given the cumulative radiation exposure and cumulative risk to adjacent nontarget organs with repeated punctures, it was elected to abort the procedure. Patient otherwise tolerated procedure well, without immediate complication. First attempt (January 25) total dose length product 1232 mGycm. CTDIvol(s) 9 x 8, 10 x 5 mGy. Second attempt (January 27) total dose length product 1232 mGycm. CTDIvol(s) 9 x 8, 10 x 5 mGy. Radiation dose was minimized using automated exposure control Comparison: Reference made to chest CT dated 01/24/2019 Findings: As above Impression: Attempted but unsuccessful biopsy of left costophrenic angle mass. Initial attempt unsuccessful due to immediate development of a small pneumothorax. Second attempt unsuccessful due to inability to obtain adequate guide needle access to the target lesion despite multiple attempts Procedure discussed by phone with Dr. Perez at its conclusion The CT scanner at [facility] is accredited by the [employer] and the scans are performed using protocols designed to limit radiation exposure to as low as reasonably achievable to attain images of sufficient resolution adequate for diagnostic evaluation.
--- NOTE | 2019-01-27 17:24 | General Progress Note ---
Assessment/Plan Assessment/Plan Assessment/Recs: # Lung biopsy of lung mass - unsuccessful first attempt --> agree with repeat biopsy if patient not discharged --> consider ct a/p with iv contrast, r/o stage iv disease --> if any of the above positive consider tumor markers --> appreciate pulm recs # Thrombocytopenia - potential causes multifactorialcould be due to pna --> Hep panel and HIV ordered --> US abd to evaluate for cirrhosis and hsm ordered --> Peripheral smear ordered to evaluate for blasts /schistocytes --> abx and other meds have been reviewed --> ok for ppx if plt >50k w/ either heparin or lovenox --> Transfuse if Plt < 20k and fever, or if Plt < 10k without fever # Anemia of chronic disease --> transfuse as needed --> anemia panel has been ordered --> no evidence of hemolysis # PNA is on abx --> ID recs appreciated # Dementia --> cont supportive care # CHF # Dehydration The timing of this note does not necessarily reflect the time of the patient was seen. Greatly appreciate consultation! Subjective Constitutional: Denies: no symptoms, chills, diaphoresis, fever, malaise, weakness, other HEENT: Denies: no symptoms, eye pain, blurred vision, tearing, double vision, ear pain, ear discharge, nose pain, nose congestion, throat pain, throat swelling, mouth pain, mouth swelling, other Cardiovascular: Denies: no symptoms, chest pain, edema, irregular heart rate, lightheadedness, palpitations, syncope, other Genitourinary: Denies: no symptoms, burning, discharge, frequency, flank pain, hematuria, incontinence, pain, urgency, other Neurologic/Psychiatric: Denies: no symptoms, anxiety, depressed, emotional problems, headache, numbness, paresthesia, pre-existing deficit, seizure, tingling, tremors, weakness, other Endocrine: Denies: no symptoms, excessive sweating, flushing, intolerance to cold, intolerance to heat, increased hunger, increased thirst, increased urine, unexplained weight gain, unexplained weight loss, other Hematologic/Lymphatic: Denies: no symptoms, anemia, easy bleeding, easy bruising, other Allergies: Coded Allergies: No Known Allergies (Unverified , 01/23/19) Subjective 01/27: seen by bedside, she had second attempts today for left side lung biopsy, unsuccessful, no events Objective Last 24 Hour Vital Signs Date Time Temp Pulse Resp B/P (MAP) Pulse Ox O2 Delivery O2 Flow Rate FiO2 01/27/19 16:00 97.8 60 18 125/50 (75) 98 01/27/19 14:20 62 18 116/47 (70) 100 01/27/19 14:15 58 18 118/47 (70) 98 01/27/19 14:10 56 18 115/44 (67) 100 01/27/19 14:05 58 18 122/44 (70) 98 01/27/19 14:00 54 18 124/45 (71) 100 01/27/19 13:23 58 18 01/27/19 12:00 98.5 65 18 115/55 (75) 100 01/27/19 09:00 Room Air 01/27/19 08:37 63 150/60 01/27/19 08:37 150/60 01/27/19 08:00 98.5 63 18 150/60 (90) 98 01/27/19 03:45 98.3 61 18 113/55 (74) 100 01/26/19 23:45 98.7 64 18 115/80 (92) 100 01/26/19 21:00 Room Air 01/26/19 20:00 98.4 61 18 132/56 (81) 100 Intake and Output 01/26/19 01/27/19 19:00 07:00 Intake Total 480 ml 120 ml Balance 480 ml 120 ml Intake Oral 480 ml 120 ml # Voids 3 1 Laboratory Tests 01/26/19 17:50: White Blood Count 5.4#, Red Blood Count 4.13L, Hemoglobin 12.4, Hematocrit 37.4 , Mean Corpuscular Volume 91, Mean Corpuscular Hemoglobin 30.1, Mean Corpuscular Hemoglobin Concent 33.2, Red Cell Distribution Width 12.0, Platelet Count 221, Mean Platelet Volume 7.5, Neutrophils (%) (Auto) 55.6, Lymphocytes (% ) (Auto) 34.7, Monocytes (%) (Auto) 8.4, Eosinophils (%) (Auto) 0.6, Basophils ( %) (Auto) 0.7, Differential Total Cells Counted 100, Neutrophils % (Manual) 48, Lymphocytes % (Manual) 36, Monocytes % (Manual) 9, Eosinophils % (Manual) 1, Basophils % (Manual) 1, Band Neutrophils 5, Other Cell Type Pathologist comment , Platelet Estimate Adequate, Platelet Morphology Normal, Red Blood Cell Morphology Normal, Reticulocyte Count 0.4, Sickle Cell Screen [Pending], Prothrombin Time 10.3, Prothromb Time International Ratio 1.0, Fibrinogen 375, Iron Level 27L, Total Iron Binding Capacity 247L, Percent Iron Saturation 11L, Unsaturated Iron Binding 220, Ferritin 307, Lactate Dehydrogenase 164, Folate 27.3, Thyroid Stimulating Hormone (TSH) 3.147, Hepatitis A IgM Antibody [Pending ], Hepatitis B Surface Antigen [Pending], Hepatitis B Core IgM Antibody [Pending ], Hepatitis C Antibody [Pending] 01/27/19 05:50: White Blood Count 4.6L, Red Blood Count 4.20, Hemoglobin 12.6, Hematocrit 37.9, Mean Corpuscular Volume 90, Mean Corpuscular Hemoglobin 30.0, Mean Corpuscular Hemoglobin Concent 33.3, Red Cell Distribution Width 12.4, Platelet Count 215, Mean Platelet Volume 8.1, Neutrophils (%) (Auto) 54.4, Lymphocytes (%) (Auto) 32.9, Monocytes (%) (Auto) 11.4H, Eosinophils (%) (Auto) 0.8, Basophils (%) ( Auto) 0.5 Height (Feet): 5 Height (Inches): 0.00 Weight (Pounds): 97 Objective PE: General Appearance: WD/WN, no apparent distress, alert, lethargic Lines, tubes and drains: peripheral HEENT: normocephalic, atraumatic, anicteric Neck: non-tender, normal alignment, supple, normal inspection Respiratory/Chest: chest wall non-tender, normal bs Cardiovascular/Chest: normal peripheral pulses Abdomen: normal bowel sounds, non tender, soft Extremities: normal range of motion, non-tender Neurologic: transportation consultant II-XII grossly normal, alert Musculoskeletal: normal muscle bulk, no effusion Joseluis Brar MD Jan 27, 2019 17:24
--- NOTE | 2019-01-27 19:15 | NUR ---
NURSE NOTES: Received report from LISA Burr. Patient alert, oriented to self. Bandaid on left side, old dry stain. Bed in low position, locked, side rails up x2. Call light within reach. No complaints of pain. Encouraged to call as needed for assistance out of bed. Will continue to monitor.
--- NOTE | 2019-01-27 19:53 | NUR ---
HAND-OFF: Report given to LISA Bhatia. Patient in stable condition.
[2019-01-27] MEDS ORDERED: clonazePAM 0.5mg tab ORAL SCH (21:00)
[2019-01-28] VITALS: BP 102/37
[2019-01-28 04:00] VITALS: BP 120/50
[2019-01-28 04:54] LABS: BASOPHILS % (AUTO) 0.9 % (0.0-2.0); HEMATOCRIT 36.9 % (37.0-47.0); HEMOGLOBIN 12.6 G/DL (12.0-16.0); LYMPHOCYTES % (AUTO) 38.6 % (20.0-45.0); MEAN CORPUSCULAR VOLUME 89 FL (80-99); MONOCYTES % (AUTO) 10.1 % (1.0-10.0); NEUTROPHILS % (AUTO) 47.3 % (45.0-75.0); PLATELET COUNT 225 K/UL (150-450); RED BLOOD COUNT 4.14 M/UL (4.20-5.40); RED CELL DISTRIBUTION WIDTH 12.1 % (11.6-14.8); WHITE BLOOD COUNT 3.7 K/UL (4.8-10.8)
--- NOTE | 2019-01-28 07:20 | Pulmonology Progress Note ---
Assessment/Plan Assessment/Plan 1. Abnormal chest x-ray. Lung mass 2. Cough. 3. Cognitive impairment. DISCUSSION: I will follow carefully. Pleural based left sided lung mass seen; s/p attempted biopsy (unsuccessful) Had small apical PTX; resolved 2nd attempted biopsy also unsuccesful Recommend outpt PET/CT vs open surgical biopsy by thoracic surgery Will discuss Subjective Interval Events: S/p second attempted lung biopsy; unsuccesful Constitutional: Reports: no symptoms HEENT: Repors: no symptoms Respiratory: Reports: no symptoms Cardiovascular: Reports: no symptoms Gastrointestinal/Abdominal: Reports: no symptoms Genitourinary: Reports: no symptoms Allergies: Coded Allergies: No Known Allergies (Unverified , 01/23/19) Objective Last 24 Hour Vital Signs Date Time Temp Pulse Resp B/P (MAP) Pulse Ox O2 Delivery O2 Flow Rate FiO2 01/28/19 04:00 96.8 60 18 120/50 (73) 100 01/28/19 00:00 97.6 57 18 102/37 (58) 96 01/27/19 21:00 Room Air 01/27/19 20:00 98.6 61 18 110/57 (74) 99 01/27/19 16:00 97.8 60 18 125/50 (75) 98 01/27/19 14:20 62 18 116/47 (70) 100 01/27/19 14:15 58 18 118/47 (70) 98 01/27/19 14:10 56 18 115/44 (67) 100 01/27/19 14:05 58 18 122/44 (70) 98 01/27/19 14:00 54 18 124/45 (71) 100 01/27/19 13:23 58 18 01/27/19 12:00 98.5 65 18 115/55 (75) 100 01/27/19 09:00 Room Air 01/27/19 08:37 63 150/60 01/27/19 08:37 150/60 01/27/19 08:00 98.5 63 18 150/60 (90) 98 Intake and Output 01/27/19 01/28/19 19:00 07:00 Intake Total 250 ml Balance 250 ml Intake Oral 250 ml # Voids 3 2 # Bowel Movements 1 1 General Appearance: no acute distress HEENT: normocephalic Respiratory/Chest: chest wall non-tender, lungs clear Cardiovascular: normal peripheral pulses, normal rate Abdomen: normal bowel sounds Laboratory Tests 01/28/19 04:45: White Blood Count 3.7L, Red Blood Count 4.14L, Hemoglobin 12.6, Hematocrit 36.9L , Mean Corpuscular Volume 89, Mean Corpuscular Hemoglobin 30.4, Mean Corpuscular Hemoglobin Concent 34.2, Red Cell Distribution Width 12.1, Platelet Count 225, Mean Platelet Volume 7.8, Neutrophils (%) (Auto) 47.3, Lymphocytes (% ) (Auto) 38.6, Monocytes (%) (Auto) 10.1H, Eosinophils (%) (Auto) 3.0, Basophils (%) (Auto) 0.9 Current Medications Medications (Trade) Dose Ordered Sig/Negro Route PRN Reason Start Time Stop Time Status Last Admin Dose Admin Acetaminophen (Tylenol) 650 mg Q4H PRN ORAL MILD PAIN (PAIN SCALE 1-4) 01/24/19 23:00 02/23/19 22:59 Acetaminophen/ Hydrocodone Bitart ([place]ul[place] 5/325) 1 tab Q6H PRN ORAL MOD PAIN (PAIN SCALE 5-7) 01/24/19 23:00 01/31/19 22:59 Acetaminophen/ Hydrocodone Bitart ([place]ul[place] 5/325) 2 tab Q6H PRN ORAL SEVERE PAIN (PAIN SCALE 8-10) 01/24/19 23:00 01/31/19 22:59 01/25/19 22:56 Barium Sulfate (Readi-Cat 2) 450 ml NOW PRN ORAL Radiology Procedure 01/26/19 16:45 01/28/19 16:33 Bisacodyl (Dulcolax) 10 mg DAILY PRN RECTAL IF MOM INEFFECTIVE 01/24/19 23:00 02/23/19 22:59 Chlorthalidone (Chlorthalidone) 25 mg DAILY ORAL 01/25/19 09:00 02/24/19 08:59 01/27/19 08:36 Clonazepam (KlonoPIN) 0.5 mg BEDTIME ORAL 01/27/19 21:00 02/03/19 20:59 01/27/19 20:42 Docusate Sodium (Colace) 100 mg TWICE A DAY ORAL 01/25/19 09:00 02/24/19 08:59 01/27/19 18:06 Enalapril Maleate (Vasotec) 10 mg DAILY ORAL 01/25/19 09:00 02/24/19 08:59 01/27/19 08:37 Enoxaparin Sodium (Lovenox) 40 mg DAILY SUBQ 01/25/19 09:00 02/24/19 08:59 01/27/19 08:38 Famotidine (Pepcid) 20 mg DAILY ORAL 01/25/19 09:00 02/24/19 08:59 01/27/19 08:36 Iopamidol (Isovue-300 100ml) 100 ml NOW PRN INJ Radiology Procedure 01/26/19 16:45 01/28/19 16:44 Magnesium Hydroxide (Mom) 30 ml DAILY PRN ORAL Constipation 01/24/19 23:00 02/23/19 22:59 Metoprolol Succinate (Toprol XL) 25 mg DAILY ORAL 01/25/19 09:00 02/24/19 08:59 01/27/19 08:37 Sodium Phosphate (Fleet's Sodium Phosl Enema) 133 ml DAILY PRN RECTAL IF MOM & BISACODYL INEFFECTIVE 01/24/19 23:00 02/23/19 22:59 Hussain Solitario MD Jan 28, 2019 07:20
--- NOTE | 2019-01-28 07:20 | NUR ---
HAND-OFF: Report given to KENDRA Simmons. Patient in stable condition.
[2019-01-28 08:00] VITALS: BP 125/55
--- NOTE | 2019-01-28 08:00 | NUR ---
NURSE NOTES: Pt in bed, a/a/ox2, romanian speaking only, no apparent resp distress noted, siderails are up x3, call light within reach, bed in lowest position. will cont to monitor.
--- NOTE | 2019-01-28 08:57 | Diagnostic Imaging Report ---
Indication: Shortness of breath, status post lung biopsy Technique: One view of the chest Comparison: 2 hours earlier Findings: Small left apical pneumothorax is again demonstrated. This is unchanged. Left lateral basilar lung mass is again demonstrated. No new infiltrates. Impression: Unchanged minimal left apical pneumothorax, over 2 hours
--- NOTE | 2019-01-28 09:20 | NUR ---
HAND-OFF: Report given to Scarlet.
--- NOTE | 2019-01-28 10:00 | NUR ---
NURSE NOTES: Received report from Iris at 0920 after assignment change from 4E. Pt in bed, awake, talkative, kinyarwanda speaking only, no apparent distress noted, call light within reach, bed in lowest position
[2019-01-28] MEDS: Docusate 100mg cap ORAL SCH (10:33)
[2019-01-28] MEDS: Metoprolol Succinate XL 25mg tab ORAL SCH (10:33)
[2019-01-28] MEDS: Enoxaparin 40mg Inj SUBQ SCH (10:34)
--- NOTE | 2019-01-28 11:22 | NUR ---
Social Service Note Spoke with Caprice at [facility] [phone] patient will return to facility skilled to room 112-A.
--- NOTE | 2019-01-28 11:31 | NUR ---
*-* DISCHARGE PLANNED *-* PATIENT IS DISCHARGED TO: [facility] ROOM# 112-A SKILLED T:[phone] FOR NURSE TO NURSE REPORT [facility] HAS BEEN ARRANGED FOR SHINE WORKER AT 1230 S/W AUDRA [id number] *-* TRIED CONTACTING DAUGHTER WITH NO LUCK UNABLE TO LEAVE , TRIED CONTACTING [facility] PHONE NUMBER SOUND BUSY IMMEDIATELY....
[2019-01-28 12:00] VITALS: BP 102/53
--- NOTE | 2019-01-28 12:35 | General Progress Note ---
Assessment/Plan Assessment/Plan S: I am fine O: denies chest pain or sob PHYSICAL EXAMINATION:HEENT: Atraumatic and normocephalic. CHEST: Clear to auscultation HEART: S1 and S2. Regular rate and rhythm. ABDOMEN: Soft. No organomegaly. MUSCULOSKELETAL: No gross sensory deficits. NEUROLOGY: The patient is awake, alert, and oriented x3. IMAGING: Chest x-ray dated January 24, 2019, reviewed. ASSESSMENT: 1. Left-sided solitary pulmonary mass.Post CT-guided Bx, unsuccessful first attempt 2. Hypertension. 3. Congestive heart failure-stable at this time. 4. Gastrointestinal and DVT prophylaxis. Plan: Discussed with the Dtr, agreed for second attempt for obtaining Bx. Post CT-guided Bx, unsuccessful first attempt, Post unsuccessful second Attempt Ok to followup as o/p. D/w Dr Solitario Will arrange for O/P PET-CT Subjective Allergies: Coded Allergies: No Known Allergies (Unverified , 01/23/19) Objective Last 24 Hour Vital Signs Date Time Temp Pulse Resp B/P (MAP) Pulse Ox O2 Delivery O2 Flow Rate FiO2 01/28/19 10:37 125/55 01/28/19 10:33 69 125/55 01/28/19 08:00 98.1 69 18 125/55 (78) 100 01/28/19 04:00 96.8 60 18 120/50 (73) 100 01/28/19 00:00 97.6 57 18 102/37 (58) 96 01/27/19 21:00 Room Air 01/27/19 20:00 98.6 61 18 110/57 (74) 99 01/27/19 16:00 97.8 60 18 125/50 (75) 98 01/27/19 14:20 62 18 116/47 (70) 100 01/27/19 14:15 58 18 118/47 (70) 98 01/27/19 14:10 56 18 115/44 (67) 100 01/27/19 14:05 58 18 122/44 (70) 98 01/27/19 14:00 54 18 124/45 (71) 100 01/27/19 13:23 58 18 Intake and Output 01/27/19 01/28/19 19:00 07:00 Intake Total 250 ml Balance 250 ml Intake Oral 250 ml # Voids 3 2 # Bowel Movements 1 1 Laboratory Tests 01/28/19 04:45: White Blood Count 3.7L, Red Blood Count 4.14L, Hemoglobin 12.6, Hematocrit 36.9L , Mean Corpuscular Volume 89, Mean Corpuscular Hemoglobin 30.4, Mean Corpuscular Hemoglobin Concent 34.2, Red Cell Distribution Width 12.1, Platelet Count 225, Mean Platelet Volume 7.8, Neutrophils (%) (Auto) 47.3, Lymphocytes (% ) (Auto) 38.6, Monocytes (%) (Auto) 10.1H, Eosinophils (%) (Auto) 3.0, Basophils (%) (Auto) 0.9 Height (Feet): 5 Height (Inches): 0.00 Weight (Pounds): 97 Lawrence Perez MD Jan 28, 2019 12:35
--- NOTE | 2019-01-28 13:05 | NUR ---
NURSE NOTES: Called Report to LISA Tucker at [facility]
--- NOTE | 2019-01-28 14:40 | NUR ---
pt discharge back to [facility] with all belongings. IV removed, ID band removed, pt stable for discharge
--- NOTE | 2019-01-28 15:13 | General Progress Note ---
Assessment/Plan Problem List: (1) anxiety disorder (2) Insomnia ICD Codes: G47.00 - Insomnia, unspecified SNOMED: [id number] Assessment/Plan Klonopin 0.5mg po qhs provided ro/st Subjective Neurologic/Psychiatric: Reports: anxiety, emotional problems Allergies: Coded Allergies: No Known Allergies (Unverified , 01/23/19) Objective Last 24 Hour Vital Signs Date Time Temp Pulse Resp B/P (MAP) Pulse Ox O2 Delivery O2 Flow Rate FiO2 01/28/19 12:00 98.3 55 17 102/53 (69) 96 01/28/19 10:37 125/55 01/28/19 10:33 69 125/55 01/28/19 09:00 Room Air 01/28/19 08:00 98.1 69 18 125/55 (78) 100 01/28/19 04:00 96.8 60 18 120/50 (73) 100 01/28/19 00:00 97.6 57 18 102/37 (58) 96 01/27/19 21:00 Room Air 01/27/19 20:00 98.6 61 18 110/57 (74) 99 01/27/19 16:00 97.8 60 18 125/50 (75) 98 Intake and Output 01/27/19 01/28/19 19:00 07:00 Intake Total 250 ml Balance 250 ml Intake Oral 250 ml # Voids 3 2 # Bowel Movements 1 1 Laboratory Tests 01/28/19 04:45: White Blood Count 3.7L, Red Blood Count 4.14L, Hemoglobin 12.6, Hematocrit 36.9L , Mean Corpuscular Volume 89, Mean Corpuscular Hemoglobin 30.4, Mean Corpuscular Hemoglobin Concent 34.2, Red Cell Distribution Width 12.1, Platelet Count 225, Mean Platelet Volume 7.8, Neutrophils (%) (Auto) 47.3, Lymphocytes (% ) (Auto) 38.6, Monocytes (%) (Auto) 10.1H, Eosinophils (%) (Auto) 3.0, Basophils (%) (Auto) 0.9 Height (Feet): 5 Height (Inches): 0.00 Weight (Pounds): 97 General Appearance: alert, confused, agitated Vita Monsivais MD Jan 28, 2019 15:13
--- NOTE | 2019-01-28 16:23 | Infectious Diseases Prog Note ---
Assessment/Plan Problems: (1) Pneumonia Assessment & Plan: keep off antibiotics for now since no fever or leukocytosis , no phlegm , and CT showed lung mass only , monitor CXR (2) Neutropenia Assessment & Plan: rule out bone marrow supression , or mets . oncology is following , will consider antibiotics if spikes fever (3) Lung mass Assessment & Plan: S/P CT guided biopsy by IR, was not successful , her repeated biopsy second attempt was not successful either , radiology and oncology are following (4) Dementia Assessment & Plan: continue supportive care (5) CHF (congestive heart failure) Assessment & Plan: continue cardiac meds as per primary (6) Dehydration Assessment & Plan: continue hydration as needed , encourage oral intake (7) Pneumothorax of left lung after biopsy Assessment & Plan: S/P second attempt for lung biopsy but unsuccessful. continue close monitor of CXR , radiologist is following Subjective Constitutional: Reports: no symptoms HEENT: Reports: no symptoms Respiratory: Reports: no symptoms Breasts: Reports: no symptoms Cardiovascular: Reports: no symptoms Gastrointestinal/Abdominal: Reports: no symptoms Genitourinary: Reports: no symptoms Neurologic: Reports: no symptoms Psychiatric: Reports: no symptoms Skin: Reports: no symptoms Endocrine: Reports: no symptoms Hematologic: Reports: no symptoms Musculoskeletal: Reports: no symptoms Allergies: Coded Allergies: No Known Allergies (Unverified , 01/23/19) Subjective she had second attempts for left side lung biopsy, unsuccessful , no cough or SOB, no fever or chills , no nausea or vomiting , no diarrhea Objective Vital Signs Last 24 Hour Vital Signs Date Time Temp Pulse Resp B/P (MAP) Pulse Ox O2 Delivery O2 Flow Rate FiO2 01/28/19 12:00 98.3 55 17 102/53 (69) 96 01/28/19 10:37 125/55 01/28/19 10:33 69 125/55 01/28/19 09:00 Room Air 01/28/19 08:00 98.1 69 18 125/55 (78) 100 01/28/19 04:00 96.8 60 18 120/50 (73) 100 01/28/19 00:00 97.6 57 18 102/37 (58) 96 01/27/19 21:00 Room Air 01/27/19 20:00 98.6 61 18 110/57 (74) 99 Height (Feet): 5 Height (Inches): 0.00 Weight (Pounds): 97 General Appearance: WD/WN, no acute distress HEENT: normocephalic, atraumatic, anicteric, mucous membranes moist, PERRL Respiratory/Chest: chest wall non-tender, lungs clear, normal breath sounds, no respiratory distress, no accessory muscle use Breasts: no masses Cardiovascular: normal peripheral pulses, normal rate, regular rhythm, no gallop/murmur, no JVD Abdomen: normal bowel sounds, soft, non tender, no organomegaly, non distended , no mass, no scars Genitourinary: normal external genitalia Extremities: no cyanosis, no clubbing Skin: no rash, no lesions, no ulcers Neurologic/Psychiatric: alert, oriented x 3, responsive Lymphatic: no neck adenopathy, no groin adenopathy Musculoskeletal: normal muscle bulk, no effusion Laboratory Tests Test 01/28/19 04:45 White Blood Count 3.7 K/UL (4.8-10.8) L Red Blood Count 4.14 M/UL (4.20-5.40) L Hemoglobin 12.6 G/DL (12.0-16.0) Hematocrit 36.9 % (37.0-47.0) L Mean Corpuscular Volume 89 FL (80-99) Mean Corpuscular Hemoglobin 30.4 PG (27.0-31.0) Mean Corpuscular Hemoglobin Concent 34.2 G/DL (32.0-36.0) Red Cell Distribution Width 12.1 % (11.6-14.8) Platelet Count 225 K/UL (150-450) Mean Platelet Volume 7.8 FL (6.5-10.1) Neutrophils (%) (Auto) 47.3 % (45.0-75.0) Lymphocytes (%) (Auto) 38.6 % (20.0-45.0) Monocytes (%) (Auto) 10.1 % (1.0-10.0) H Eosinophils (%) (Auto) 3.0 % (0.0-3.0) Basophils (%) (Auto) 0.9 % (0.0-2.0) Melecio Rodriguez M.D. Jan 28, 2019 16:23
--- NOTE | 2019-01-28 20:40 | General Progress Note ---
Assessment/Plan Assessment/Plan Assessment/Recs: # Lung biopsy of lung mass - unsuccessful first attempt --> agree with repeat biopsy if patient not discharged --> consider ct a/p with iv contrast, r/o stage iv disease --> if any of the above positive consider tumor markers --> appreciate pulm recs # Thrombocytopenia - potential causes multifactorialcould be due to pna --> Hep panel and HIV negative --> US abd to evaluate for cirrhosis and hsm reviewed --> Peripheral smear ordered to evaluate for blasts /schistocytes --> abx and other meds have been reviewed --> ok for ppx if plt >50k w/ either heparin or lovenox --> Transfuse if Plt < 20k and fever, or if Plt < 10k without fever # Anemia of chronic disease --> transfuse as needed --> anemia panel has been reviewed --> no evidence of hemolysis # PNA is on abx --> ID recs appreciated # Dementia --> cont supportive care # CHF # Dehydration The timing of this note does not necessarily reflect the time of the patient was seen. Greatly appreciate consultation! Subjective ROS Limited/Unobtainable: Yes Allergies: Coded Allergies: No Known Allergies (Unverified , 01/23/19) Subjective 01/27: seen by bedside, she had second attempts today for left side lung biopsy, unsuccessful, no events 01/28: Pt is awake, comfortable, no acute distress reported Objective Last 24 Hour Vital Signs Date Time Temp Pulse Resp B/P (MAP) Pulse Ox O2 Delivery O2 Flow Rate FiO2 01/28/19 12:00 98.3 55 17 102/53 (69) 96 01/28/19 10:37 125/55 01/28/19 10:33 69 125/55 01/28/19 09:00 Room Air 01/28/19 08:00 98.1 69 18 125/55 (78) 100 01/28/19 04:00 96.8 60 18 120/50 (73) 100 01/28/19 00:00 97.6 57 18 102/37 (58) 96 01/27/19 21:00 Room Air Intake and Output 01/27/19 01/28/19 19:00 07:00 Intake Total 250 ml Balance 250 ml Intake Oral 250 ml # Voids 3 2 # Bowel Movements 1 1 Laboratory Tests 01/28/19 04:45: White Blood Count 3.7L, Red Blood Count 4.14L, Hemoglobin 12.6, Hematocrit 36.9L , Mean Corpuscular Volume 89, Mean Corpuscular Hemoglobin 30.4, Mean Corpuscular Hemoglobin Concent 34.2, Red Cell Distribution Width 12.1, Platelet Count 225, Mean Platelet Volume 7.8, Neutrophils (%) (Auto) 47.3, Lymphocytes (% ) (Auto) 38.6, Monocytes (%) (Auto) 10.1H, Eosinophils (%) (Auto) 3.0, Basophils (%) (Auto) 0.9 Height (Feet): 5 Height (Inches): 0.00 Weight (Pounds): 97 Objective PE: General Appearance: WD/WN, no apparent distress, alert, lethargic Lines, tubes and drains: peripheral HEENT: normocephalic, atraumatic, anicteric Neck: non-tender, normal alignment, supple, normal inspection Respiratory/Chest: chest wall non-tender, normal bs Cardiovascular/Chest: normal peripheral pulses Abdomen: normal bowel sounds, non tender, soft Extremities: normal range of motion, non-tender 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
--- NOTE | 2019-01-29 04:02 | Consultation ---
DATE OF CONSULTATION: 01/28/2019 CONSULTING PHYSICIAN: Luisa Martinez M.D. ATTENDING PHYSICIAN: Lawrence Perez M.D. REFERRING PHYSICIAN: Lawrence Perez M.D. REASON FOR CONSULTATION: Skin check. HISTORY OF PRESENT ILLNESS: This is an 83-year-old woman with multiple medical problems, who lives [facility]. She was admitted through the emergency room for left-sided pulmonary mass. PAST MEDICAL HISTORY: Hypertension, dyslipidemia, and congestive heart failure. MEDICATIONS: Enalapril, Pepcid, metoprolol, clonazepam, Lovenox subcutaneous, acetaminophen and . REVIEW OF SYSTEMS: I completed review of systems with the patient with the help of a waterproofer.CONSTITUTIONAL: She reports no weight loss or weight gain, no fever or chills. HEENT: The patient has no new cough, throat pain or headache. CARDIOVASCULAR: The patient denies any chest pain. CHEST: The patient denies any shortness of breath. NEUROMUSCULAR: The patient denies any abrasions or open wounds. PHYSICAL EXAMINATION: VITAL SIGNS: The patient was afebrile with stable vitals. GENERAL: She is alert, in no acute distress. EXTREMITIES: She did have instability when walking. NEUROLOGIC: She has intact sensation in her hands and her feet. SKIN: She has no abrasions or open wounds. She does have extremely thin skin. ASSESSMENT: This is an 83-year-old woman, who was admitted and found to have a lung mass. The patient does have thin skin and also she was unsteady when walking. In order to prevent any injuries or any abrasions, recommend fall precautions and also assistance when going to bathroom. I recommend also for her to moisturize her skin. Nutrition referral to ensure adequate nutrition is met. Luisa Martinez M.D. DR: TRISTIN JOB#: [id number] CC: HEIDY
--- NOTE | 2019-01-30 14:37 | Discharge Summary ---
Discharge Summary Discharge Summary _ DATE OF ADMISSION: 01/24/2019 DATE OF DISCHARGE: 01/28/2019 DISCHARGED BY: Dr. Perez REASON FOR ADMISSION: 83 years old female with past medical history of hypertension, dyslipidemia, congestive heart failure, hypertension, presented with paroxysmal episodes of coughing. Chest x-ray was performed and read by radiologist as opacity within the left costophrenic sulcus. Possibly of mass should be considered. Patient was called to come back ( initial visit to ED 01/23, current 01/24). Patient denied any symptoms: no fever, no chills, no nausea, no vomiting ,no diarrhea, no dysuria. Vital signs revealed low-grade fever 99.7. Laboratory workup revealed no leukocytosis, stable hemoglobin and hematocrit,, stable electrolytes except potassium 3.4. Stable renal parameters. Lactic acid 1.9. Troponin negative. Pro-BNP 363. Albumin 3.4. Urinalysis revealed no evidence of UTI, +3 blood, +1 protein. Chest x-ray demonstrated left costophrenic sulcus opacity. CT of the chest revealed 3.7 x 1.8 x 3 cm mass in the left costophrenic sulcus, likely pleural-based with concern for neoplasm. 7 mm and 3 mm lingular nodules. EKG revealed normal sinus rhythm, no acute ischemic changes. Patient subsequently was admitted for further workup. CONSULTANTS: pulmonary Dr. Solitario ID specialist disease case manager rn/oncologist Dr. Brar plastic surgery Dr. Mann psychiatrist [facility] COURSE: Patient admitted . Supplemental oxygen provided as needed to keep pulse oximetry above 92% , pulmonary toilet provided as needed . Shredded Filler Cutter Operator consulted. care home medications were continued. DVT and GI prophylaxis provided. Patient undergone CT-guided left lung needle biopsy with 2 attempts by interventional radiolgoy, however both attempts were unsuccessful. Initial attempt was unsuccessful due to immediate development of a small pneumothorax-resolving. Second attempt was unsuccessful due to inability to obtain adequate guide needle access to the target lesion despite multiple attempts. Shredded Filler Cutter Operator recommended outpatient PET/CT versus open surgical biopsy by cardiothoracic surgeon. CT of the abdomen and pelvis revealed no acute abdominal pelvic process, no evidence of abdominal or pelvic metastasis. Infectious disease specialist followed. Blood cultures were negative, influenza screen test was negative. Infectious disease doctor recommended to keep patient off antibiotics , since CT scan revealed only lung mass , but no evidence of pneumonia. Patient was followed -up with chest x-ray. No evidence of pneumonia on chest x- ray. Oncologist followed. Oncologist initially recommended CT of the abdomen pelvis with IV contrast to rule out stage IV disease. As mentioned above, CT of abdomen an pelvis revealed no evidence of malignancy. Volumes were closely monitored, no evidence of heart failure decompensation. Hepatitis panel was negative . HIV test was nonreactive. Hemoglobin and hematocrit were closely monitored with goal to keep hemoglobin above 7, remained at baseline. Fall precaution maintained. Psychiatrist followed. Reality orientation and supportive therapy provided. Plastic surgeon seen the patient for skin check . Recommendation provided for measures to prevent skin breakdown. Patient clinically stabilized and was ready for transfer to long-term facility. Follow up with outpatient PET/CT versus open surgical biopsy by cardiothoracic surgeon as recommended by leather lacer. FINAL DIAGNOSES: Left lung mass with possible malignancy Status post needle guided lung biopsy Small left apical pneumothorax after biopsy- resolving Dehydration Congestive heart failure Dementia Anxiety disorder Insomnia. DISCHARGE MEDICATIONS: See Medication Reconciliation list. DISCHARGE INSTRUCTIONS: Patient was discharged to the long-term facility. Follow up with medical doctor at the facility. I have been assigned to dictate discharge summary for this account. I was not involved in the patient's management. Melina Gallagher NP Jan 30, 2019 14:37
== END 2019-01-28 14:20 | DRG 182 ==
LOC: EDBD 15:52 → EMR 16:37 → 3E 17:05 → EDBEDREQ 17:11 → 3E 01-25 11:56
PROC: 0BDL4ZX Extraction of Left Lung, Percutaneous Endoscopic Approach, Diagnostic (ICD-10-PCS; principal; 2019-01-27)
DX: C34.92 Malignant neoplasm of unspecified part of left bronchus or lung (principal); I11.0 Hypertensive heart disease with heart failure; D63.8 Anemia in other chronic diseases classified elsewhere; E86.0 Dehydration; I50.9 Heart failure, unspecified; F03.90 Unspecified dementia, unspecified severity, without behavioral disturbance, psychotic disturbance, mood disturbance, and anxiety; F41.9 Anxiety disorder, unspecified; G47.00 Insomnia, unspecified; E78.5 Hyperlipidemia, unspecified; D69.6 Thrombocytopenia, unspecified
CPT/HCPCS: 36415; 71045; 71046; 71260; 74177; 77012; 80053; 80061; 81003; 82270; 82550; 82728; 82746; 83036; 83540; 83550; 83605; 83615; 83880; 84443; 84484; 85007; 85025; 85044; 85060; 85384; 85610; 85660; 85730; 86705; 86709; 86710; 86803; 87040; 87081; 87340; 93005; 96360; 96361; 99285